=== PATIENT | female | born 1970 | race Asian ===

== ENCOUNTER 2016-08-11 13:38 | Emergency (ER) | payer OTHER ==
[~2016-08-11] VITALS: Ht 149.9 cm; Wt 50.5 kg
[2016-08-11 13:45] VITALS: Ht 149.9 cm; Wt 50.5 kg
[2016-08-11] MEDS ORDERED: FAMOTIDINE 20 MG INJ IV STA (15:13)
[2016-08-11] MEDS ORDERED: ONDANSETRON 4 MG INJ IV STA (15:13)
[2016-08-11] MEDS ORDERED: morphine 4 MG/ML VIAL IV STA (15:13)
--- NOTE | 2016-08-11 15:42 | ERD ---
ER Documentation Chief Complaint Date/Time DATE: 08/11/16 TIME: 15:41 Chief Complaint BIB SELF C/O RUQ PAIN X 3 WEEKS WITH NAUSEA/VOMITING HPI This 45-year-old female who presents the emergency department today complaining of right-sided abdominal pain for the past 3 weeks that is gotten worse over the past 4 days. States she now has nausea and vomiting. States that the pain goes around to the right side of her back. States that she took Advil this morning. States that she went to her primary care doctor and was sent here to the emergency department for further evaluation. Denies any fevers or chills per ROS All systems reviewed and are negative except as per history of present illness. Medications Home Meds Active Scripts Ibuprofen* (Motrin*) 600 Mg Tab, 600 MG PO Q6, #30 TAB Prov:CAITIE YAN PA-C 08/11/16 Ondansetron Hcl* (Zofran*) 4 Mg Tablet, 4 MG PO Q6H for NAUSEA AND/OR VOMITING, #30 TAB Prov:CAITIE YAN PA-C 08/11/16 Hydrocodone/Acetaminophen ([place] 5-325 Tablet) 1 Each Tablet, 1 TAB PO Q6H Y for PAIN, #12 TAB Prov:CAITIE YAN PA-C 08/11/16 Allergies Allergies: Coded Allergies: No Known Allergy (Unverified , 08/11/16) PMhx/Soc Anesthesia Reaction: No Hx Neurological Disorder: No Hx Respiratory Disorders: No Hx Cardiac Disorders: No Hx Psychiatric Problems: No Hx Miscellaneous Medical Probl: No Hx Alcohol Use: No Hx Substance Use: No Hx Tobacco Use: No Smoking Status: Never smoker Physical Exam Vitals Vital Signs Date Time Temp Pulse Resp B/P Pulse Ox O2 Delivery O2 Flow Rate FiO2 08/11/16 13:45 98.3 79 20 128/72 100 Physical Exam Const: No acute distress Head: Atraumatic Eyes: Normal Conjunctiva ENT: Normal External Ears, Nose and Mouth. Neck: Full range of motion..~ No meningismus. Resp: Clear to auscultation bilaterally Cardio: Regular rate and rhythm, no murmurs Abd: Soft, epigastric right upper quadrant tenderness non distended. Normal bowel sounds. No right lower quadrant pain. No tenderness McBurney's. Skin: No petechiae or rashes Back: No midline or flank tenderness. No CVA tenderness peer Ext: No cyanosis, or edema Neur: Awake and alert Psych: Normal Mood and Affect Result Diagram: 08/11/16 1530 08/11/16 1530 Results 24 hrs Laboratory Tests Test 08/11/16 15:30 White Blood Count 11.210^3/ul Red Blood Count 5.2510^6/ul Hemoglobin 12.9g/dl Hematocrit 40.4% Mean Corpuscular Volume 77.0fl Mean Corpuscular Hemoglobin 24.6pg Mean Corpuscular Hemoglobin Concent 31.9g/dl Red Cell Distribution Width 14.3% Platelet Count 01035^3/UL Mean Platelet Volume 10.5fl Neutrophils % 56.0% Lymphocytes % 20.0% Monocytes % 5.0% Eosinophils % 19.0% Neutrophils # 6.310^3/ul Lymphocytes # 2.210^3/ul Monocytes # 0.610^3/ul Eosinophils # 2.110^3/ul Urine Color YELLOW Urine Clarity SLIGHTLY CLOUDY Urine pH 5.0 Urine Specific [place] 1.019 Urine Ketones TRACEmg/dL Urine Nitrite NEGATIVEmg/dL Urine Bilirubin NEGATIVEmg/dL Urine Urobilinogen NEGATIVEmg/dL Urine Leukocyte Esterase NEGATIVELeu/ul Urine Microscopic RBC 2/HPF Urine Microscopic WBC 1/HPF Urine Squamous Epithelial Cells FEW/HPF Urine Bacteria FEW/HPF Urine Hemoglobin 1+mg/dL Urine Glucose NEGATIVEmg/dL Urine Total Protein NEGATIVEmg/dl Sodium Level 139mmol/L Potassium Level 3.6mmol/L Chloride Level 104mmol/L Carbon Dioxide Level 26mmol/L Anion Gap 13 Blood Urea Nitrogen 9mg/dl Creatinine 0.71mg/dl Glucose Level 85mg/dl Calcium Level 9.2mg/dl Total Bilirubin 0.4mg/dl Direct Bilirubin 0.00mg/dl Indirect Bilirubin 0.4mg/dl Aspartate Amino Transf (AST/SGOT) 46IU/L Alanine Aminotransferase (ALT/SGPT) 49IU/L Alkaline Phosphatase 76IU/L Total Protein 8.8g/dl Albumin 5.1g/dl Globulin 3.70g/dl Albumin/Globulin Ratio 1.37 Lipase 150U/L Current Medications Medications (Trade) Dose Ordered Sig/Carmella Route PRN Reason Start Time Stop Time Status Last Admin Dose Admin Morphine Sulfate (morphine) 4 mg ONCE STAT IV 08/11/16 15:13 08/11/16 15:15 DC 08/11/16 15:46 Ondansetron HCl (Zofran Inj) 4 mg ONCE STAT IV 08/11/16 15:13 08/11/16 15:15 DC 08/11/16 15:46 Famotidine (Pepcid Iv) 20 mg ONCE STAT IV 08/11/16 15:13 08/11/16 15:15 DC 08/11/16 15:46 DIAGNOSTIC IMAGING REPORT Patient: ANNMARIE CONTI : 1970 Age: 45 Sex: F MR #: [id number] DOS: 08/11/16 1513 Ordering MD: CAITIE YAN PA-C Location: [facility] Room/Bed: PROCEDURE: Right upper quadrant ultrasound CLINICAL INDICATION: Abdominal pain TECHNIQUE: Multiple real-time images were acquired of the patient's abdomen and right retroperitoneum utilizing a high resolution transducer. COMPARISON: None FINDINGS: The liver is normal in echogenicity and measures 11.9 cm. There is a questionable ill-defined hypoechoic solid appearing 4.4 x 4.9 cm mass in the right hepatic lobe. Recommend further evaluation with three-phase liver CT. No other focal hepatic lesions are seen. The gallbladder there is significantly distended. There is extensive sludge within the gallbladder lumen. No and some areas the sludge appears polypoid which may represent an refractive sludge versus gallbladder wall polyp/mass. There is moderate thickening of the gallbladder wall. No pericholecystic fluid is identified. The intra and extrahepatic bile ducts are normal in caliber. The common bile duct measures 3.9 mm. Midline images demonstrate the pancreas to be normal in echogenicity without obvious inflammatory change. Survey views of the right kidney demonstrate no evidence of hydronephrosis or renal calculi. The right kidney measures 9.8 cm. IMPRESSION: 1. Questionable ill-defined 4.4 x 4.9 cm hypoechoic mass in the right hepatic lobe. Recommend three-phase CT or MRI for further evaluation. No other hepatic lesions seen. 2. Distended gallbladder with extensive sludge. In some areas of sludge appears slightly mass-like and gallbladder neoplasm is not excluded. This can be further evaluated with MRI RPTAT: .Andrew Higuera MD, MD Date Time Electronically viewed and signed by .Andrew Higuera MD, MD on 08/11/2016 16:42 .W/ CC: CAITIE YAN PA-C Procedures/MDM This a 45-year-old female presents the emergency department today complaining of right sided upper abdominal pain that radiates to her back for the past 2 weeks and worse for the past 4 days. On physical exam patient had epigastric and right upper quadrant tenderness radiating around her back. Given this I did obtain laboratory work as well as an ultrasound Laboratory work shows an elevated white blood cell count of 11.2. She is not anemic. Platelets are within normal limits. Electrolytes are within normal limits. Glucose is within normal limits. Lipase is within normal limits. Liver functions within normal limits. UA is negative for infection Urine test is negative Right upper quadrant ultrasound shows a questionable ill-defined for by 4 cm hypoechoic mass in the right hepatic lobe. There is a distended gallbladder with extensive sludge and some areas sludge appears slightly masslike and gallbladder neoplasm is not excluded. There is moderate thickening of the gallbladder wall. There is no pericholecystic fluid identified. I have explained the results to the patient and her . Patient does have good follow-up and states that she can see her primary care doctor fairly quickly. I explained to her that she would likely benefit from referral to general surgery as well. Patient was given morphine, Pepcid and Zofran here in the emergency department. Patient indicated that her pain was controlled. Discussed the patient with Dr. Blackwell and he does not feel that she needs admission at this time given all of her laboratory work is essentially normal and there is no pericholecystic fluid. Patient symptoms at this time is consistent with biliary colic. Patient was given a prescription for [place], Motrin and Zofran for home. At this time the patient is stable for discharge and outpatient management. Patient should follow up with their PCP in the next 1-2 days. They may return to the emergency department sooner for any persistent or worsening of symptoms. Patient understood and agreed with the plan. Departure Diagnosis: Primary Impression: Biliary colic Condition: Fair CAITIE YAN PA-C Aug 11, 2016 15:42
[2016-08-11 15:48] LABS: ADD SCAN DIFF NO
[2016-08-11 15:53] LABS: ABNORMAL IP MESSAGE 1; HEMATOCRIT 40.4 % (37.0-47.0); HEMOGLOBIN 12.9 g/dl (12.0-16.0); MEAN CORPUSCULAR HEMOGLOBIN 24.6 pg (29.0-33.0); MEAN CORPUSCULAR HGB CONC 31.9 g/dl (32.0-37.0); MEAN PLATELET VOLUME 10.5 fl (7.4-10.4); PLATELET COUNT 305 10^3/UL (140-415); RED BLOOD COUNT 5.25 10^6/ul (4.20-5.40); RED CELL DISTRIBUTION WIDTH 14.3 % (11.5-14.5); WHITE BLOOD COUNT 11.2 10^3/ul (4.8-10.8)
[2016-08-11 15:59] LABS: ADD UMIC YES; UR ASCORBIC ACID NEGATIVE (NEGATIVE); UR BACTERIA FEW /HPF (NONE SEEN); UR BILIRUBIN (Dip) NEGATIVE (NEGATIVE); UR BLOOD (Dip) 1+ mg/dL (NEGATIVE); UR CLARITY SLIGHTLY CLOUDY (CLEAR); UR COLOR YELLOW (YELLOW); UR GLUCOSE (Dip) NEGATIVE (NEGATIVE); UR KETONES (Dip) TRACE mg/dL (NEGATIVE); UR LEUKOCYTE ESTERASE (Dip) NEGATIVE Leu/ul (NEGATIVE); UR NITRITE (Dip) NEGATIVE (NEGATIVE); UR RBC 2 /HPF (0-5); UR SPECIFIC GRAVITY (Dip) 1.019 (1.003-1.030); UR SQUAMOUS EPITHELIAL CELL FEW /HPF (FEW); UR TOTAL PROTEIN (Dip) NEGATIVE (NEGATIVE); UR UROBILINOGEN (Dip) NEGATIVE (NEGATIVE)
[2016-08-11 16:27] LABS: ALBUMIN 5.1 g/dl (3.3-4.9); ALBUMIN/GLOBULIN RATIO 1.37; BILIRUBIN,INDIRECT 0.4 mg/dl (0-1.1); BILIRUBIN,TOTAL 0.4 mg/dl (0.2-1.3); CALCIUM 9.2 mg/dl (8.4-10.2); CREATININE 0.71 mg/dl (0.44-1.00); POTASSIUM 3.6 mmol/L (3.5-5.1); TOTAL PROTEIN 8.8 g/dl (6.1-8.1)
[2016-08-11 16:29] LABS: EOSINOPHILS # 2.1 10^3/ul (0.0-0.5); LYMPHOCYTES # 2.2 10^3/ul (0.8-2.9); MONOCYTE # 0.6 10^3/ul (0.3-0.9); NEUTROPHIL # 6.3 10^3/ul (1.6-7.5)
--- NOTE | 2016-08-11 16:43 | RADRPT ---
PROCEDURE: Right upper quadrant ultrasound CLINICAL INDICATION: Abdominal pain TECHNIQUE: Multiple real-time images were acquired of the patient's abdomen and right retroperiton eum utilizing a high resolution transducer. COMPARISON: None FINDINGS: The liver is normal in echogenicity and measures 11.9 cm. There is a questionable ill-defined hypoe choic solid appearing 4.4 x 4.9 cm mass in the right hepatic lobe. Recommend further evaluation wit h three-phase liver CT. No other focal hepatic lesions are seen. The gallbladder there is significa ntly distended. There is extensive sludge within the gallbladder lumen. No and some areas the sludg e appears polypoid which may represent an refractive sludge versus gallbladder wall polyp/mass. Ther e is moderate thickening of the gallbladder wall. No pericholecystic fluid is identified. The intr a and extrahepatic bile ducts are normal in caliber. The common bile duct measures 3.9 mm. Midline images demonstrate the pancreas to be normal in echogenicity without obvious inflammatory ch azra. Survey views of the right kidney demonstrate no evidence of hydronephrosis or renal calculi. The ri ght kidney measures 9.8 cm. IMPRESSION: 1. Questionable ill-defined 4.4 x 4.9 cm hypoechoic mass in the right hepatic lobe. Recommend thre e-phase CT or MRI for further evaluation. No other hepatic lesions seen. 2. Distended gallbladder with extensive sludge. In some areas of sludge appears slightly mass-like and gallbladder neoplasm is not excluded. This can be further evaluated with MRI RPTAT: HH .Andrew Higuera MD, MD Date Time Electronically viewed and signed by .Andrew Higuera MD, MD on 08/11/2016 16:42 .W/
[2016-08-11] MEDS ORDERED: HYDR-906 PO (17:27)
[2016-08-11] MEDS ORDERED: IBUP-1542 PO (17:27)
[2016-08-11] MEDS ORDERED: ONDA4TAB8 PO (17:27)
[2016-08-12] MEDS ORDERED: ALBU18HF INHALATION (17:27)
[2016-08-12] MEDS ORDERED: RANI150T9 PO (17:31)
== END 2016-08-11 17:47 | disposition home or self-care (01) ==
LOC: FTE 13:38
DX: K80.50 Calculus of bile duct without cholangitis or cholecystitis without obstruction (principal); R11.2 Nausea with vomiting, unspecified
CPT/HCPCS: 36415; 76705; 80053; 81001; 83690; 85025; 96374; 96375; J2270; J2405; Z7502; Z7610

== ENCOUNTER 2016-08-12 12:05 | Inpatient (IN) | payer OTHER ==
[~2016-08-12] VITALS: Ht 149.9 cm; Wt 51.4 kg
[~2016-08-12 12:05] MED LIST: HYDR-906 PO; IBUP-1542 PO; ONDA4TAB8 PO
[2016-08-12] MEDS ORDERED: ONDANSETRON 4 MG INJ IV STA (13:23)
[2016-08-12] MEDS ORDERED: SOD CHLORIDE 0.9% 1,000 ML IV STA (13:23)
[2016-08-12] MEDS ORDERED: morphine 4 MG/ML VIAL IV STA (13:23)
[2016-08-12 14:05] LABS: ADD SCAN DIFF NO
[2016-08-12 14:09] LABS: BASOPHIL # 0.1 10^3/ul (0.0-0.1); BASOPHILS % 0.5 % (0.0-2.0); EOSINOPHILS % 8.1 % (0.0-7.0); HEMATOCRIT 40.2 % (37.0-47.0); HEMOGLOBIN 12.9 g/dl (12.0-16.0); LYMPHOCYTES # 1.9 10^3/ul (0.8-2.9); LYMPHOCYTES % 15.9 % (15.0-51.0); MEAN CORPUSCULAR HEMOGLOBIN 24.7 pg (29.0-33.0); MEAN CORPUSCULAR HGB CONC 32.1 g/dl (32.0-37.0); MEAN PLATELET VOLUME 10.5 fl (7.4-10.4); MONOCYTE # 0.9 10^3/ul (0.3-0.9); MONOCYTES % 7.1 % (0.0-11.0); NEUTROPHIL # 8.2 10^3/ul (1.6-7.5); PLATELET COUNT 269 10^3/UL (140-415); RED BLOOD COUNT 5.22 10^6/ul (4.20-5.40); RED CELL DISTRIBUTION WIDTH 14.2 % (11.5-14.5); WHITE BLOOD COUNT 12.1 10^3/ul (4.8-10.8)
[2016-08-12 14:14] LABS: UR BUDDING YEAST FEW /HPF (NONE SEEN); UR MUCUS FEW /HPF (NONE SEEN); UR RBC > 182 /HPF (0-5); UR SQUAMOUS EPITHELIAL CELL FEW /HPF (FEW)
[2016-08-12 14:33] LABS: ALBUMIN 5.1 g/dl (3.3-4.9); ALBUMIN/GLOBULIN RATIO 1.45; BILIRUBIN,INDIRECT 0.9 mg/dl (0-1.1); BILIRUBIN,TOTAL 0.9 mg/dl (0.2-1.3); CALCIUM 9.5 mg/dl (8.4-10.2); CREATININE 0.76 mg/dl (0.44-1.00); POTASSIUM 4.7 mmol/L (3.5-5.1); TOTAL PROTEIN 8.6 g/dl (6.1-8.1)
[2016-08-12 14:43] LABS: ADD UMIC YES; UR ASCORBIC ACID NEGATIVE (NEGATIVE); UR BACTERIA FEW /HPF (NONE SEEN); UR BILIRUBIN (Dip) NEGATIVE (NEGATIVE); UR BLOOD (Dip) 3+ mg/dL (NEGATIVE); UR CLARITY SLIGHTLY CLOUDY (CLEAR); UR COLOR YELLOW (YELLOW); UR GLUCOSE (Dip) NEGATIVE (NEGATIVE); UR KETONES (Dip) 2+ mg/dL (NEGATIVE); UR LEUKOCYTE ESTERASE (Dip) NEGATIVE Leu/ul (NEGATIVE); UR NITRITE (Dip) NEGATIVE (NEGATIVE); UR SPECIFIC GRAVITY (Dip) 1.021 (1.003-1.030); UR TOTAL PROTEIN (Dip) 1+ mg/dl (NEGATIVE); UR UROBILINOGEN (Dip) NEGATIVE (NEGATIVE)
[2016-08-12] MEDS ORDERED: SOD CHLORIDE 0.9% 100 ML ONE (14:45)
[2016-08-12] MEDS ORDERED: IOHEXOL 300MG/ML 150 ML BTL ONE (14:46)
--- NOTE | 2016-08-12 15:27 | RADRPT ---
PROCEDURE: CT abdomen and pelvis with contrast. CLINICAL INDICATION: Abdominal pain TECHNIQUE: CT scan of the abdomen and pelvis with contrast was performed on a multi-slice CT scann er. The patient was scanned following the uncomplicated intravenous administration 100 cc of Omnipa que 300. Coronal and sagittal reformatted images were obtained from the axial source images. One or more of the following does reduction techniques were used: Automated exposure control; adjustment of the mA and/or kV according to patient size; use of the aorta of reconstruction technique. Images were reviewed on a high-resolution PACS workstation. The total exam CTDI equals 7.1 mGy and the tota l exam DLP equals 366.3 mGy-cm. COMPARISON: There are quadrant ultrasound 08/11/2016 FINDINGS: The lung bases are clear. The heart size is normal, without pericardial thickening or effusion. There are at least 3 liver masses, the smallest measures 1.5 cm in the anterior right lobe of the li [place]. The largest mass is in the inferior anterior right lobe liver and measures up to 7.3 x 5.4 x 5 .9 cm. There is direct extension into the fundus of the gallbladder and an exophytic portion extend ing inferiorly to the liver. There is associated trace free fluid or infiltrative change just infer ior to the liver. There is additional soft tissue density in the region of the neck of the gallbladd er which may represent additional mass. The common bile duct is prominent with abrupt cut off of th e distal duct concerning for partial or early obstruction. The spleen and pancreas are within marli l limits. The adrenal glands are symmetric and normal. The kidneys show normal and symmetric enhancement. No renal calculus or obstructive uropathy is seen. The aorta is of normal caliber. Atherosclerotic calcifications are present There is no retroperiton eal lymph node enlargment. There is no evidence of large or small bowel obstruction. No free fluid or fluid collections are mary lou ntified. No inflammatory changes are seen. The uterus is present. There is no evidence of pelvic sidewall lymph node enlargement. The bladder is within normal limits. There is no pelvic free fluid. The inguinal regions are unremarkable. The osseous structures are intact. IMPRESSION: 1. At least 3 liver masses, largest measuring up to 7.3 cm with direct extension into the fundus of the gallbladder. Findings are most consistent with metastatic disease. Recommend biopsy and compl ete metastatic workup. 2. Prominent common bile duct with abrupt cut off distally may indicate a distal partial obstructio n. Consider ERCP for further evaluation if clinically indicated. 3. Atherosclerotic vascular disease. RPTAT: KK .Morgan Guerrero MD, MD Date Time Electronically viewed and signed by .Morgan Guerrero MD, MD on 08/12/2016 15:27 .B/
--- NOTE | 2016-08-12 15:47 | ERA ---
ER Documentation Chief Complaint Date/Time DATE: 08/12/16 TIME: 15:41 Chief Complaint seen here before has a mass in her triston HPI This is a 45-year-old female presents to the ER with continued and worsening right upper abdominal pain. Pain started 3 weeks ago and has been getting significantly worse over the last few days. Patient has had nausea and multiple episodes nonbilious nonbloody vomiting. She denies any diarrhea. She denies any recent travel or sick contacts at home. She denies fevers or chills. She went to her primary care doctor and was referred to the ER. Patient has slight for the last 20 years, there is no liver or gallbladder cancer. Patient denies any alcohol or tobacco use. ROS 12 point review of systems was done, all negative except per HPI. Medications Home Meds Reported Medications Ranitidine Hcl* (Zantac*) 150 Mg Tablet, 150 MG PO BID, #60 TAB 08/12/16 Albuterol Sulfate* (Ventolin HFA*) 18 Gm Hfa.aer.ad, 2 PUFF INHALATION Q4H, #1 INHALER 08/12/16 Discontinued Scripts Ibuprofen* (Motrin*) 600 Mg Tab, 600 MG PO Q6, #30 TAB Prov:CAITIE YAN PA-C 08/11/16 Ondansetron Hcl* (Zofran*) 4 Mg Tablet, 4 MG PO Q6H for NAUSEA AND/OR VOMITING, #30 TAB Prov:CAITIE YAN PA-C 08/11/16 Hydrocodone/Acetaminophen ([place] 5-325 Tablet) 1 Each Tablet, 1 TAB PO Q6H Y for PAIN, #12 TAB Prov:CAITIE YAN PA-C 08/11/16 Allergies Allergies: Coded Allergies: No Known Allergy (Unverified , 08/11/16) PMhx/Soc Anesthesia Reaction: No Hx Neurological Disorder: No Hx Respiratory Disorders: No Hx Cardiac Disorders: No Hx Psychiatric Problems: No Hx Miscellaneous Medical Probl: No Hx Alcohol Use: No Hx Substance Use: No Hx Tobacco Use: No Smoking Status: Never smoker Physical Exam Vitals Vital Signs Date Time Temp Pulse Resp B/P Pulse Ox O2 Delivery O2 Flow Rate FiO2 08/12/16 16:18 98.2 79 18 132/78 100 Room Air 08/12/16 12:08 98.5 72 18 130/81 100 Physical Exam GENERAL: The patient is in significant distress secondary to pain. HEENT: Atraumatic. CHEST: Clear to auscultation bilaterally. There are no rales, wheezes or rhonchi. HEART: Regular rate and rhythm. No murmurs, clicks, rubs or gallops. ABDOMEN: Soft, tender to palpation in the right upper quadrant, right lower quadrant, and mid abdomen. Good bowel sounds. No rebound or guarding. No gross peritonitis. No gross organomegaly or masses. No Coleman sign or McBurney point tenderness. BACK: No midline or flank tenderness. NEURO: Alert and oriented. Result Diagram: 08/12/16 1350 08/12/16 1350 Results 24 hrs Laboratory Tests Test 08/12/16 13:50 White Blood Count 12.110^3/ul Red Blood Count 5.2210^6/ul Hemoglobin 12.9g/dl Hematocrit 40.2% Mean Corpuscular Volume 77.0fl Mean Corpuscular Hemoglobin 24.7pg Mean Corpuscular Hemoglobin Concent 32.1g/dl Red Cell Distribution Width 14.2% Platelet Count 32708^3/UL Mean Platelet Volume 10.5fl Neutrophils % 68.0% Lymphocytes % 15.9% Monocytes % 7.1% Eosinophils % 8.1% Basophils % 0.5% Nucleated Red Blood Cells % 0.0/100WBC Neutrophils # 8.210^3/ul Lymphocytes # 1.910^3/ul Monocytes # 0.910^3/ul Eosinophils # 1.010^3/ul Basophils # 0.110^3/ul Nucleated Red Blood Cells # 0.010^3/ul Urine Color YELLOW Urine Clarity SLIGHTLY CLOUDY Urine pH 5.0 Urine Specific [place] 1.021 Urine Ketones 2+mg/dL Urine Nitrite NEGATIVEmg/dL Urine Bilirubin NEGATIVEmg/dL Urine Urobilinogen NEGATIVEmg/dL Urine Leukocyte Esterase NEGATIVELeu/ul Urine Microscopic RBC > 182/HPF Urine Microscopic WBC 18/HPF Urine Squamous Epithelial Cells FEW/HPF Urine Bacteria FEW/HPF Urine Mucus FEW/HPF Urine Yeast (Budding) FEW/HPF Urine Hemoglobin 3+mg/dL Urine Glucose NEGATIVEmg/dL Urine Total Protein 1+mg/dl Sodium Level 139mmol/L Potassium Level 4.7mmol/L Chloride Level 102mmol/L Carbon Dioxide Level 26mmol/L Anion Gap 16 Blood Urea Nitrogen 11mg/dl Creatinine 0.76mg/dl Glucose Level 77mg/dl Calcium Level 9.5mg/dl Total Bilirubin 0.9mg/dl Direct Bilirubin 0.00mg/dl Indirect Bilirubin 0.9mg/dl Aspartate Amino Transf (AST/SGOT) 48IU/L Alanine Aminotransferase (ALT/SGPT) 41IU/L Alkaline Phosphatase 83IU/L Total Protein 8.6g/dl Albumin 5.1g/dl Globulin 3.50g/dl Albumin/Globulin Ratio 1.45 Lipase 137U/L Current Medications Medications (Trade) Dose Ordered Sig/Carmella Route PRN Reason Start Time Stop Time Status Last Admin Dose Admin Sodium Chloride (NS) 1,000 ml @ 1,000 mls/hr Q1H STAT IV 08/12/16 13:23 08/12/16 14:22 DC 08/12/16 13:51 Morphine Sulfate (morphine) 5 mg ONCE STAT IV 08/12/16 13:23 08/12/16 13:25 DC 08/12/16 13:51 Ondansetron HCl (Zofran Inj) 4 mg ONCE STAT IV 08/12/16 13:23 08/12/16 13:25 DC 08/12/16 13:50 IV Flush 10 ml 10 ml STK-MED ONCE .ROUTE 08/12/16 14:45 08/12/16 14:46 DC Sodium Chloride (NS) 100 ml @ ud STK-MED ONCE .ROUTE 08/12/16 14:45 08/12/16 14:46 DC Iohexol 150 ml 150 ml STK-MED ONCE .ROUTE 08/12/16 14:46 08/12/16 14:47 DC Piperacillin Sod/ Tazobactam Sod (Zosyn 3.375gm/ 100 ml (Pmx)) 100 ml @ 200 mls/hr ONCE ONCE IVPB 08/12/16 17:30 08/12/16 17:59 DC 08/12/16 17:28 Procedures/MDM This is a 45-year-old female presents to the ER with worsening right upper quadrant pain. Patient was found to have 3 liver masses that could possibly be metastatic disease. Patient was also found to have a distal partial obstruction. Patient's with benefit from admission for further metastatic workup and biopsy. I consulted with GI doctor Tara who has agreed to consult on patient once she is admitted Departure Diagnosis: Primary Impression: Gallbladder cancer Additional Impressions: Metastatic disease Choledocholithiasis Condition: GHANSHYAM Solis Aug 12, 2016 15:47
[2016-08-12 16:18] VITALS: TEMP 98.2
[2016-08-12] MEDS ORDERED: ALBU18HF INHALATION (17:27)
[2016-08-12] MEDS ORDERED: PIPER-TAZO 3.375 GM IV (PMX) 100 ML IVPB ONE (17:30)
[2016-08-12] MEDS ORDERED: RANI150T9 PO (17:31)
[2016-08-12] MEDS ORDERED: DOCUSATE SODIUM 100 MG CAP PO PRN (18:00)
[2016-08-12] MEDS ORDERED: NA PHOSPHATE/BIPHOS 133 ML ENEMA PR PRN (18:00)
[2016-08-12] MEDS ORDERED: morphine 2 MG INJ IV PRN (18:00)
[2016-08-12] MEDS ORDERED: PROVENTIL HFA 6.7GM INHALER INH SCH (18:00)
[2016-08-12] MEDS ORDERED: hydrALAzine 20 MG INJ IV PRN (18:00)
[2016-08-12] MEDS ORDERED: MAGNESIUM HYDROXIDE 30ML CUP PO PRN (18:00)
[2016-08-12] MEDS ORDERED: NITROGLYCERIN (SL) 0.4 MG TAB SL PRN (18:00)
[2016-08-12] MEDS ORDERED: ALBUTEROL/IPRATROPIUM (NEB) 3 ML AMP HHN PRN (18:00)
[2016-08-12] MEDS ORDERED: NACL 0.9% 3 ML SYG IV SCH (18:00)
[2016-08-12] MEDS ORDERED: LORAZEPAM 2 MG INJ IV PRN (18:00)
[2016-08-12] MEDS ORDERED: HYDROCODONE/APAP (5/325) TAB PO PRN (18:00)
[2016-08-12 18:49] LABS: INR 0.99; PROTIME 13.1 Sec (12.2-14.2)
[2016-08-12 18:50] LABS: PARTIAL THROMBOPLASTIN TIME 28.5 Sec (25.0-35.0)
[2016-08-12] MEDS: ACETAMINOPHEN 325 MG TAB PO PRN (18:50)
[2016-08-12] MEDS: ONDANSETRON 4 MG INJ IV PRN (18:50)
[2016-08-12] MEDS ORDERED: PEG/ELECTROLYTES 4L BTL PO ONE (19:00)
[2016-08-12] MEDS: SOD CHLORIDE 0.45% 1,000 ML IV SCH (19:30)
[2016-08-12 19:58] LABS: CANCER ANTIGEN 125 36.1 U/ml (0.0-35.0)
--- NOTE | 2016-08-12 20:04 | HP ---
DATE OF ADMISSION: 08/12/2016 CHIEF COMPLAINT: Abdominal pain. HISTORY OF PRESENT ILLNESS: A 45-year-old female with past medical history of asthma who came into the ER today because of worsening right upper quadrant pain. The pain began about 3 weeks ago. She has been having nausea and vomiting symptoms, nonbilious, nonbloody. She tried some Zantac at home , which did not relieve her symptoms. She has also been having some mild abdominal pain, but no jaime rrhea, no constipation, no upper or lower GI bleeding. No fevers or chills. No headache or loss of consciousness. When she came in today, she had imaging studies performed. Apparently, she came in to the ER 24 hours ago and had a gallbladder ultrasound performed and there was a diagnosis given of biliary colic. The patient was sent home with pain control medications and antiemetics, but she di d come back today because of worsening symptoms. Today, she had a CT abdomen and pelvis that shows at least 3 liver masses, largest measuring up to 7.3 cm with a direct extension into the fundus of t he gallbladder. Findings are most consistent with metastatic disease, recommend biopsying, complete metastatic workup. There is also a prominent common bile duct with abrupt cut off distally, may in dicate distal partial obstruction. Consider ERCP for further evaluation if clinically indicated. J ust now the GI doctor has come and evaluated the patient as well here in the ER. PAST MEDICAL HISTORY: As stated above. ALLERGIES: NO KNOWN DRUG ALLERGIES. MEDICATIONS AT HOME: Include: 1. Ventolin HFA 2 puffs inhaled q.4h. 2. Zantac 150 mg b.i.d. PAST SURGICAL HISTORY: She has had a tubal ligation in the past. FAMILY HISTORY: Mother had hypertension. Father had skin disease. SOCIAL HISTORY: Negative for smoking or drinking or IV drug abuse. PHYSICAL EXAMINATION: VITAL SIGNS: T-max 98.5, pulse 72 to 79, respirations 18, blood pressure 132/78, saturating at 100% on room air. GENERAL: The patient is lying in bed in mild to moderate distress secondary to pain, but alert. HEENT: Pupils equal, round, react to light. Extraocular muscles intact. NECK: Supple. No thyromegaly. LUNGS: Clear to auscultation bilaterally. No wheezes. CARDIOVASCULAR: S1 and S2 are heard. No murmurs, rubs, or gallops. ABDOMEN: Soft, but tenderness to palpation, right upper quadrant area, and also in the right lower quadrant area, in the mid abdomen area. There is normal bowel sounds. No rebound or guarding. Non distended. MUSCULOSKELETAL: No lower extremity edema bilaterally. NEUROLOGIC: No focal deficits. LABORATORIES: WBC 12.1, hemoglobin 12.9, hematocrit 40.2, platelets of 269. The comprehensive meta bolic panel is essentially normal except AST is a little high at 48. Lipase is normal. UA shows sl ightly cloudy, 2+ ketones, 18 white blood cells, which are elevated, and a few bacteria, few mucus, few budding yeast, and 3+ hemoglobin. The coags are essentially normal. ASSESSMENT AND PLAN: A 45-year-old female coming in with worsening right upper quadrant pain for e last 3 weeks with signs of new liver masses extending into the gallbladder wall, concerning for me tastasis. 1. Abdominal pain. Again secondary likely to the liver masses and gallbladder extension of the mas s. We will admit the patient to med/surg floor. We will check a TSH, A1c, lipid panel. Get a hepa tobiliary consult, hematology consult, and GI consult. Per discussion with GI team, the patient lik demond will need an ERCP. Will also put the patient on Zosyn antibiotics for now, given the elevated w soo blood cell count. Tylenol p.r.n. pain and fevers. Antiemetic medications as well IV fluids. Will also get an MRCP as well. Check tumor markers as well including alpha fetoprotein, CA-125, CA 19-9, and CEA levels. There was a concern of possible malignancy here. 2. For asthma, she will be on DuoNebs p.r.n. 3. Gastrointestinal prophylaxis, she will be on H2 lena. 4. Deep venous thrombosis prophylaxis, heparin subq. 5. Consider PT consult as well. Dictated By: JONNY DOWELL Conf#: [id number] DID#: [id number]
[2016-08-12] MEDS: RANITIDINE 150 MG TAB PO SCH (20:23)
--- NOTE | 2016-08-12 20:24 | CONS ---
DATE OF ADMISSION: 08/12/2016 DATE OF CONSULTATION: TYPE OF CONSULTATION: Gastroenterology. Dear Dr. Hood, Thank you for asking me to see Ms. Diallo in GI consultation. HISTORY OF PRESENT ILLNESS: As you know, the patient is a 45-year-old Vincentian female, has been exp eriencing abdominal pain for the past 3 weeks associated with periodic vomiting. She has had no his tory of vomiting blood or passing blood from the rectum. She has no significant weight loss. No al coholism. Review of systems positive for asthma. She was seen in the emergency room, and the CAT s can of the abdomen shows evidence of multiple masses in the liver, possible gallbladder mass and als o biliary obstruction. PAST MEDICAL HISTORY: No ____ surgeries. REVIEW OF SYSTEMS: Asthma. PHYSICAL EXAMINATION: GENERAL: The patient is a 45-year-old Vincentian female who at this time is alert, thin built. VITAL SIGNS: She is afebrile. The blood pressure is 132/78, pulse is 79. CARDIOVASCULAR: Normal heart sounds. RESPIRATORY: Normal breath sounds. ABDOMEN: Soft abdomen with right upper quadrant tenderness. LABORATORY WORKUP: Potassium 4.7, the bilirubin 0.9, AST 48, ALT 41, alkaline phosphatase 83, total protein 8.6, globulin 3.5, lipase 137. The WBC is 12,100, hemoglobin 12.9. IMAGING: The CAT scan of the abdomen, as mentioned earlier on, multiple masses in the liver, possib le gallbladder mass, biliary obstruction noted. CLINICAL IMPRESSION: The patient has evidence of multiple masses in the liver with biliary obstruct ion. Quite likely that she has metastatic disease causing the biliary obstruction. I doubt choledo cholithiasis. PLAN: At this time, recommend ERCP. This was explained to the patient. She understood and she agr eed. Will do this ERCP tomorrow. Once again, doctor, thank you for this consultation. Dictated By: JULIANO ALMANZAR/MAYO Conf#: [id number] DID#: [id number] CC: JONNY HOOD;*EndCC*
[2016-08-12 22:03] VITALS: Ht 149.9 cm; Wt 51.4 kg
[2016-08-12 22:16] VITALS: BP 120/70; PULSE 76; RESP 18
[2016-08-12] MEDS: HEPARIN 5,000 UNIT/0.5 ML VIAL SC SCH (22:39)
--- NOTE | 2016-08-12 23:19 | RADRPT ---
PROCEDURE: MRI of the abdomen without contrast/MRCP. CLINICAL INDICATION: Liver and gallbladder mass TECHNIQUE: MRI of the abdomen without contrast/MRCP was performed on the a high-resolution, high T esla field strength scanner. Patient was examined without contrast. 3-D coronal rotating MIP image s of the biliary tree are available for review. COMPARISON: CT abdomen and pelvis with contrast of 08/12/2016 and right upper quadrant abdominal ult rasound of 08/11/2016 FINDINGS: Evaluation of the liver is limited without contrast. Multiple masses are seen in the left lobe of t he liver and anterior segment of the right lobe of the liver the largest approximately 7.2 x 5.3 cm centered in the medial segment of the left lobe which appears to extend to the gallbladder fundus. There is cholelithiasis. There is mild central intrahepatic biliary dilatation and dilatation of th e extrahepatic bile duct to approximately 8 mm diameter. No definite choledocholithiasis is seen. N o stricture is seen in the extrahepatic bile duct. The pancreatic duct, as visualized, is unremarkab le. IMPRESSION: Evaluation of the liver is limited without contrast. Multiple masses are seen in the left lobe of t he liver and anterior segment of the right lobe of the liver the largest approximately 7.2 x 5.3 cm centered in the medial segment of the left lobe which appears to extend to the gallbladder fundus. Cholelithiasis. Mild central intrahepatic biliary dilatation and dilatation of the extrahepatic robert e duct to approximately 8 mm diameter. Please see above. RPTAT: HJES .Lalo Cano MD, MD Date Time Electronically viewed and signed by .Lalo Cano MD, on 08/12/2016 23:19 .S/
[2016-08-12] MEDS: PIPER-TAZO 3.375 GM IV (PMX) 100 ML IVPB SCH (23:55)
[2016-08-13] VITALS (18 sets, daily range): BP systolic 97–139; BP diastolic 55–77; PULSE 52–87; RESP 16–23
[2016-08-13] MEDS: ONDANSETRON 4 MG INJ IV PRN (02:02)
[2016-08-13] MEDS: ACETAMINOPHEN 325 MG TAB PO PRN ×3 (02:02→16:00)
[2016-08-13] MEDS: PIPER-TAZO 3.375 GM IV (PMX) 100 ML IVPB SCH ×4 (05:58→23:02)
[2016-08-13 07:16] LABS: ADD SCAN DIFF NO
[2016-08-13] MEDS: SOD CHLORIDE 0.45% 1,000 ML IV SCH ×2 (07:20→11:02)
[2016-08-13 07:21] LABS: BASOPHIL # 0.1 10^3/ul (0.0-0.1); BASOPHILS % 0.4 % (0.0-2.0); EOSINOPHILS # 0.1 10^3/ul (0.0-0.5); EOSINOPHILS % 1.1 % (0.0-7.0); HEMATOCRIT 35.2 % (37.0-47.0); HEMOGLOBIN 11.3 g/dl (12.0-16.0); LYMPHOCYTES # 1.4 10^3/ul (0.8-2.9); LYMPHOCYTES % 11.3 % (15.0-51.0); MEAN CORPUSCULAR HEMOGLOBIN 25.2 pg (29.0-33.0); MEAN CORPUSCULAR HGB CONC 32.1 g/dl (32.0-37.0); MEAN CORPUSCULAR VOLUME 78.6 fl (82.0-101.0); MEAN PLATELET VOLUME 10.8 fl (7.4-10.4); MONOCYTE # 0.9 10^3/ul (0.3-0.9); MONOCYTES % 7.3 % (0.0-11.0); NEUTROPHIL # 9.7 10^3/ul (1.6-7.5); NEUTROPHILS % 79.5 % (39.0-77.0); PLATELET COUNT 245 10^3/UL (140-415); RED BLOOD COUNT 4.48 10^6/ul (4.20-5.40); RED CELL DISTRIBUTION WIDTH 14.1 % (11.5-14.5); WHITE BLOOD COUNT 12.2 10^3/ul (4.8-10.8)
[2016-08-13] MEDS: RANITIDINE 150 MG TAB PO SCH ×2 (09:11→21:00)
[2016-08-13] MEDS: HEPARIN 5,000 UNIT/0.5 ML VIAL SC SCH (09:14)
[2016-08-13 09:31] LABS: CHOL/HDL RATIO 2.4 RATIO
[2016-08-13 09:33] LABS: CALCIUM 7.9 mg/dl (8.4-10.2); CREATININE 0.62 mg/dl (0.44-1.00); MAGNESIUM 1.9 mg/dl (1.7-2.5); PHOSPHORUS 3.8 mg/dl (2.5-4.9)
--- NOTE | 2016-08-13 11:02 | CONS ---
Date/Time of Note Date/Time of Note DATE: 08/13/16 TIME: 10:45 Assessment/Plan Assessment/Plan Chief Complaint/Hosp Course 45 yo with RUQ pain now found with multiple liver masses and biliary obstruction. # Liver masses - given elevated CA 19-9 of 3420 there is a high likelihood patient has an underlying hepatobiliary malignancy -f/u pathology results from ERCP -agree with surgical hepatobiliary consult # Microcytic Anemia -given concern for iron deficiency, will check iron studies -need to check VitB12/ Folate/ TSH -r/o hemolysis. will check Retic, LDH, haptoglobin #leukocytosis - likely secondary to underlying inflammatory process. pt is s/p 1 dose of Zosn but does not appear to be clinically infected -will continue to monitor Problems: (1) Leukocytosis Status: Acute (2) Anemia, iron deficiency Status: Acute (3) Choledocholithiasis Status: Acute (4) Gallbladder cancer Status: Chronic Consultation Date/Type/Reason Admit Date/Time Aug 12, 2016 at 17:07 Initial Consult Date August 13, 2016 Type of Consultation: oncology Reason for Consultation liver masses Referring Provider: JONNY HOOD 24 HR Interval Summary Free Text/Dictation 45-year-old female with past medical history of asthma who presented [facility] with 3 weeks of indigestion and right upper quadrant pain. Pt endorses nausea but denies any hematemesis or bloody bowel movements. Pt denies any weight loss or jaundice. A CT abdomen and pelvisw as done that demonstrated at least 3 liver masses, largest measuring up to 7.3 cm with a direct extension into the fundus of the gallbladder. There is possibility of biliary obstruction. Pt has since been evaluated by GI and is scheduled for ERCP today. Constitutional: poor po Exam/Review of Systems Vital Signs Vitals Vital Signs Date Time Temp Pulse Resp B/P Pulse Ox O2 Delivery O2 Flow Rate FiO2 08/13/16 07:36 98.2 71 18 101/57 99 08/12/16 22:16 Room Air Intake and Output 08/12/16 08/12/16 08/13/16 15:00 23:00 07:00 Intake Total 830 ml Balance 830 ml Exam Constitutional: alert, oriented Psych: no complaints Head: atraumatic, normocephalic Eyes: nl conjunctiva ENMT: nl external ears & nose Neck: non-tender, supple Respiratory: clear to auscultation Cardiovascular: regular rate and rhythm Gastrointestinal: other (RUQ tenderness) Musculoskeletal: nl extremities to inspection Extremities: normal pulses Results Result Diagram: 08/13/16 0524 08/13/16 0524 Results 24 hrs Laboratory Tests Test 08/12/16 13:50 08/12/16 17:50 08/13/16 05:24 White Blood Count 12.1 H 12.2 H Red Blood Count 5.22 4.48 Hemoglobin 12.9 11.3 L Hematocrit 40.2 35.2 L Mean Corpuscular Volume 77.0 L 78.6 L Mean Corpuscular Hemoglobin 24.7 L 25.2 L Mean Corpuscular Hemoglobin Concent 32.1 32.1 Red Cell Distribution Width 14.2 14.1 Platelet Count 269 245 Mean Platelet Volume 10.5 H 10.8 H Neutrophils % 68.0 79.5 H Lymphocytes % 15.9 11.3 L Monocytes % 7.1 7.3 Eosinophils % 8.1 H 1.1 Basophils % 0.5 0.4 Nucleated Red Blood Cells % 0.0 0.0 Neutrophils # 8.2 H 9.7 H Lymphocytes # 1.9 1.4 Monocytes # 0.9 0.9 Eosinophils # 1.0 H 0.1 Basophils # 0.1 0.1 Nucleated Red Blood Cells # 0.0 0.0 Urine Color YELLOW Urine Clarity SLIGHTLY CLOUDY A Urine pH 5.0 Urine Specific [place] 1.021 Urine Ketones 2+ H Urine Nitrite NEGATIVE Urine Bilirubin NEGATIVE Urine Urobilinogen NEGATIVE Urine Leukocyte Esterase NEGATIVE Urine Microscopic RBC > 182 H Urine Microscopic WBC 18 H Urine Squamous Epithelial Cells FEW Urine Bacteria FEW A Urine Mucus FEW A Urine Yeast (Budding) FEW A Urine Hemoglobin 3+ H Urine Glucose NEGATIVE Urine Total Protein 1+ H Sodium Level 139 136 Potassium Level 4.7 4.0 Chloride Level 102 105 Carbon Dioxide Level 26 18 L Anion Gap 16 17 H Blood Urea Nitrogen 11 10 Creatinine 0.76 0.62 Glucose Level 77 48 #*L Calcium Level 9.5 7.9 L Total Bilirubin 0.9 Direct Bilirubin 0.00 Indirect Bilirubin 0.9 Aspartate Amino Transf (AST/SGOT) 48 H Alanine Aminotransferase (ALT/SGPT) 41 Alkaline Phosphatase 83 Total Protein 8.6 H Albumin 5.1 H Globulin 3.50 H Albumin/Globulin Ratio 1.45 Lipase 137 Prothrombin Time 13.1 Prothrombin Time Ratio 1.0 INR International Normalized Ratio 0.99 Activated Partial Thromboplast Time 28.5 Alpha Fetoprotein 1.34 Carcinoembryonic Antigen 106.0 H CA 19-9 Antigen 3420.0 H CA 125 Antigen 36.1 H Free Thyroxine 1.40 Hemoglobin A1c 5.4 Phosphorus Level 3.8 Magnesium Level 1.9 Triglycerides Level 54 Cholesterol Level 167 LDL Cholesterol, Calculated 88 HDL Cholesterol 68 Cholesterol/HDL Ratio 2.4 Thyroid Stimulating Hormone (TSH) Pending Medications Medications Current Medications Ondansetron HCl (Zofran Inj) 4 mg Q6H PRN IV NAUSEA AND/OR VOMITING Last administered on 08/13/16 02:02; Admin Dose 4 MG; Start 08/12/16 at 18:00 Acetaminophen (Tylenol Tab) 650 mg Q6H PRN PO PAIN LEVEL 1-3 OR FEVER Last administered on 08/13/16 09:11; Admin Dose 650 MG; Start 08/12/16 at 18:00 Acetaminophen/ Hydrocodone Bitart ([place] (5/325)) 1 tab Q6H PRN PO MODERATE PAIN LEVEL 4-6; Start 08/12/16 at 18:00 Morphine Sulfate (morphine) 2 mg Q4H PRN IV SEVERE PAIN LEVEL 7-10; Start 08/12 at 18:00 Docusate Sodium (Colace) 100 mg Q12H PRN PO CONSTIPATION; Start 08/12/16 at 18: 00 Magnesium Hydroxide (Milk Of Mag) 30 ml DAILY PRN PO CONSTIPATION; Start at 18:00 Sodium Biphosphate/ Sodium Phosphate (Fleet Enema) 133 ml DAILY PRN AR CONSTIPATION; Start 08/12/16 at 18:00 Heparin Sodium (Porcine) 5000 unit 5,000 unit Q12 SC Last administered on 09:14; Admin Dose 5,000 UNIT; Start 08/12/16 at 21:00 Sodium Chloride (1/2 NS) 1,000 ml @ 75 mls/hr [id number] IV Last administered on 08/12/16 19:30; Admin Dose 75 MLS/HR; Start 08/12/16 at 18:00 Lorazepam 0.5 mg 0.5 mg Q6H PRN IV ANXIETY; Start 08/12/16 at 18:00 Piperacillin Sod/ Tazobactam Sod (Zosyn 3.375gm/ 100 ml (Pmx)) 100 ml @ 200 mls /hr Q6 IVPB Last administered on 08/13/16 05:58; Admin Dose 200 MLS/HR; Start 08/13/16 at 00:00 Hydralazine HCl (Apresoline) 10 mg Q6H PRN IV ELEVATED BLOOD PRESSURE; Start at 18:00 Nitroglycerin (Nitroglycerin (Sl Tab) 0.4 Mg) 1 tab Q5M PRN SL ANGINA; Start at 18:00 Ranitidine HCl (Zantac) 150 mg BID PO Last administered on 08/13/16 09:11; Admin Dose 150 MG; Start 08/12/16 at 21:00 GRANT WINSLOW M.D. Aug 13, 2016 10:56
--- NOTE | 2016-08-13 11:57 | PN ---
Date/Time of Note Date/Time of Note DATE: 08/13/16 TIME: 11:53 Assessment/Plan VTE Prophylaxis VTE Prophylaxis Intervention: heparin Lines/Catheters IV Catheter Type (from [place]): Peripheral IV Assessment/Plan Chief Complaint/Hosp Course ASSESSMENT AND PLAN: 45-year-old female coming in with worsening right upper quadrant pain for the last 3 weeks with signs of new liver masses extending into the gallbladder wall, concerning for cancer/metastasis. 1. Abdominal pain. Again secondary likely to the liver masses and gallbladder extension of the mass. CEA, CA 19-9, and 125 are all elevated. Strong concern unfortunately for cancer, possibly hepatobilary in origin. - for ERCP later today, f/u rec's; anti-emetic's for nausea control - f/u hepatobiliary consult, hematology consult, and GI consult rec's. - pain control - continue Zosyn antibiotics for now, given the elevated white blood cell count. - Tylenol p.r.n. pain and fevers. 2. For asthma - DuoNebs p.r.n. 3. Gastrointestinal prophylaxis - H2 lena. 4. Deep venous thrombosis prophylaxis - heparin subq. Problems: Subjective 24 Hr Interval Summary Free Text/Dictation Pt still with some nausea smpts. Seen by clinical sales consultant teams. MRCP performed, and awaiting ERCP for later today. Exam/Review of Systems Vital Signs Vitals Vital Signs Date Time Temp Pulse Resp B/P Pulse Ox O2 Delivery O2 Flow Rate FiO2 08/13/16 07:36 98.2 71 18 101/57 99 08/12/16 22:16 Room Air Intake and Output 08/12/16 08/12/16 08/13/16 15:00 23:00 07:00 Intake Total 830 ml Balance 830 ml Exam GENERAL: The patient is lying in bed in mild to moderate distress secondary to pain, but alert. HEENT: Pupils equal, round, react to light. Extraocular muscles intact. NECK: Supple. No thyromegaly. LUNGS: Clear to auscultation bilaterally. No wheezes. CARDIOVASCULAR: S1 and S2 are heard. No murmurs, rubs, or gallops. ABDOMEN: Soft, but tenderness to palpation, right upper quadrant area, and also in the right lower quadrant area, in the mid abdomen area. There is normal bowel sounds. No rebound or guarding. Nondistended. MUSCULOSKELETAL: No lower extremity edema bilaterally. NEUROLOGIC: No focal deficits. Results Result Diagram: 08/13/16 0524 08/13/16 0524 Results 24 hrs Laboratory Tests Test 08/12/16 13:50 08/12/16 17:50 08/13/16 05:24 White Blood Count 12.1 H 12.2 H Red Blood Count 5.22 4.48 Hemoglobin 12.9 11.3 L Hematocrit 40.2 35.2 L Mean Corpuscular Volume 77.0 L 78.6 L Mean Corpuscular Hemoglobin 24.7 L 25.2 L Mean Corpuscular Hemoglobin Concent 32.1 32.1 Red Cell Distribution Width 14.2 14.1 Platelet Count 269 245 Mean Platelet Volume 10.5 H 10.8 H Neutrophils % 68.0 79.5 H Lymphocytes % 15.9 11.3 L Monocytes % 7.1 7.3 Eosinophils % 8.1 H 1.1 Basophils % 0.5 0.4 Nucleated Red Blood Cells % 0.0 0.0 Neutrophils # 8.2 H 9.7 H Lymphocytes # 1.9 1.4 Monocytes # 0.9 0.9 Eosinophils # 1.0 H 0.1 Basophils # 0.1 0.1 Nucleated Red Blood Cells # 0.0 0.0 Urine Color YELLOW Urine Clarity SLIGHTLY CLOUDY A Urine pH 5.0 Urine Specific [place] 1.021 Urine Ketones 2+ H Urine Nitrite NEGATIVE Urine Bilirubin NEGATIVE Urine Urobilinogen NEGATIVE Urine Leukocyte Esterase NEGATIVE Urine Microscopic RBC > 182 H Urine Microscopic WBC 18 H Urine Squamous Epithelial Cells FEW Urine Bacteria FEW A Urine Mucus FEW A Urine Yeast (Budding) FEW A Urine Hemoglobin 3+ H Urine Glucose NEGATIVE Urine Total Protein 1+ H Sodium Level 139 136 Potassium Level 4.7 4.0 Chloride Level 102 105 Carbon Dioxide Level 26 18 L Anion Gap 16 17 H Blood Urea Nitrogen 11 10 Creatinine 0.76 0.62 Glucose Level 77 48 #*L Calcium Level 9.5 7.9 L Total Bilirubin 0.9 Direct Bilirubin 0.00 Indirect Bilirubin 0.9 Aspartate Amino Transf (AST/SGOT) 48 H Alanine Aminotransferase (ALT/SGPT) 41 Alkaline Phosphatase 83 Total Protein 8.6 H Albumin 5.1 H Globulin 3.50 H Albumin/Globulin Ratio 1.45 Lipase 137 Prothrombin Time 13.1 Prothrombin Time Ratio 1.0 INR International Normalized Ratio 0.99 Activated Partial Thromboplast Time 28.5 Alpha Fetoprotein 1.34 Carcinoembryonic Antigen 106.0 H CA 19-9 Antigen 3420.0 H CA 125 Antigen 36.1 H Free Thyroxine 1.40 Hemoglobin A1c 5.4 Phosphorus Level 3.8 Magnesium Level 1.9 Triglycerides Level 54 Cholesterol Level 167 LDL Cholesterol, Calculated 88 HDL Cholesterol 68 Cholesterol/HDL Ratio 2.4 Thyroid Stimulating Hormone (TSH) Pending Medications Medications Current Medications Acetaminophen (Tylenol Tab) 650 mg Q6H PRN PO PAIN LEVEL 1-3 OR FEVER Last administered on 08/13/16 09:11; Admin Dose 650 MG; Start 08/12/16 at 18:00 Acetaminophen/ Hydrocodone Bitart ([place] (5/325)) 1 tab Q6H PRN PO MODERATE PAIN LEVEL 4-6; Start 08/12/16 at 18:00 Morphine Sulfate (morphine) 2 mg Q4H PRN IV SEVERE PAIN LEVEL 7-10; Start 08/12 at 18:00 Docusate Sodium (Colace) 100 mg Q12H PRN PO CONSTIPATION; Start 08/12/16 at 18: 00 Magnesium Hydroxide (Milk Of Mag) 30 ml DAILY PRN PO CONSTIPATION; Start at 18:00 Sodium Biphosphate/ Sodium Phosphate (Fleet Enema) 133 ml DAILY PRN ID CONSTIPATION; Start 08/12/16 at 18:00 Heparin Sodium (Porcine) (Heparin (5000 Units/0.5 ml)) 5,000 unit Q12 SC Last administered on 08/13/16 09:14; Admin Dose 5,000 UNIT; Start 08/12/16 at 21:00 Lorazepam 0.5 mg 0.5 mg Q6H PRN IV ANXIETY; Start 08/12/16 at 18:00 Piperacillin Sod/ Tazobactam Sod (Zosyn 3.375gm/ 100 ml (Pmx)) 100 ml @ 200 mls /hr Q6 IVPB Last administered on 08/13/16 11:04; Admin Dose 200 MLS/HR; Start 08/13/16 at 00:00 Hydralazine HCl (Apresoline) 10 mg Q6H PRN IV ELEVATED BLOOD PRESSURE; Start at 18:00 Nitroglycerin (Nitroglycerin (Sl Tab) 0.4 Mg) 1 tab Q5M PRN SL ANGINA; Start at 18:00 Ranitidine HCl (Zantac) 150 mg BID PO Last administered on 08/13/16t 09:11; Admin Dose 150 MG; Start 08/12/16 at 21:00 Trimethobenzamide HCl 200 mg 200 mg Q6H PRN IM NAUSEA AND/OR VOMITING; Start at 12:00 Ondansetron HCl/ Sodium Chloride (Zofran Inj/NS) 54 ml @ 216 mls/hr Q6H PRN IV NAUSEA AND/OR VOMITING; Start 08/13/16 at 12:00 Hydromorphone HCl 1 mg 1 mg Q4H PRN IV PAIN; Start 08/13/16 at 12:00 Dextrose/Sodium Chloride (D5-1/2ns) 1,000 ml @ 75 mls/hr [id number] IV ; Start at 12:00 Procedures Procedures MRCP (08/13/16): IMPRESSION: Evaluation of the liver is limited without contrast. Multiple masses are seen in the left lobe of the liver and anterior segment of the right lobe of the liver the largest approximately 7.2 x 5.3 cm centered in the medial segment of the left lobe which appears to extend to the gallbladder fundus. Cholelithiasis. Mild central intrahepatic biliary dilatation and dilatation of the extrahepatic bile duct to approximately 8 mm diameter. Please see above. JONNY HOOD Aug 13, 2016 11:57
[2016-08-13] MEDS ORDERED: ONDANSETRON 4 MG INJ IV PRN ×2 (12:00→20:30)
[2016-08-13] MEDS ORDERED: TRIMETHOBENZAMIDE 100 MG/ML VIAL IM PRN (12:00)
[2016-08-13] MEDS ORDERED: HYDROmorphONE 1 MG/ML SYG IV PRN (12:00)
[2016-08-13] MEDS: DEXTROSE 5%-0.45% NACL 1,000 ML IV SCH (12:03)
[2016-08-13 12:42] LABS: RETICULOCYTE COUNT % 2.1 % (0.5-1.5)
[2016-08-13 12:42] LABS: THYROID STIMULATING HORMONE 0.229 MIU/L (0.465-4.680)
[2016-08-13 12:50] LABS: LACTATE DEHYDROGENASE 1324 IU/L (313-618)
[2016-08-13 12:51] LABS: IRON 82 ug/dl (35-150)
[2016-08-13 13:00] LABS: TOTAL IRON BINDING CAPACITY 319 ug/dl (241-421)
[2016-08-13 13:23] LABS: THYROID STIMULATING HORMONE 0.283 MIU/L (0.465-4.680)
[2016-08-13 13:27] LABS: FERRITIN 55.6 ng/ml (6.2-137.0)
[2016-08-13] MEDS: ONDANSETRON INJ 8 MG in SOD CHLORIDE 0.9% 50 ML IV PRN (13:34)
[2016-08-13 14:02] LABS: FOLATE > 20.0 ng/ml (2.8-20.0)
--- NOTE | 2016-08-13 14:32 | CONS ---
[facility] INITIAL INPATIENT CONSULTATION NOTE DATE OF CONSULTATION: 08/13/2016 PLACE OF SERVICE: [facility], 6th floor. 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 Differential also includes pancreatic malignancy versus gallbladder malignancy. Hepatocellular carcinoma is less likely. Metastatic disease is also less likely, and we did not see any other evidence of disease in the rest of her abdominal cavity. As it presents, I do not believe that the patient's case is a surgical case. I cannot see any way that we could surgically render the patient without disease and we would certainly have to perform a very complex operation which may have to include a hepatectomy, in addition to a Whipple procedure. In these situations, the likelihood of long-term benefit to the patient is extremely small to none. Certainly, if this is gallbladder cancer it is considered to be stage IV. The way the images appear render this malignant process essentially at this stage IV regardless of the point of origin. It would be important for us to have tissue biopsy to try and differentiate between the site of origin, if possible, and then gear systemic chemotherapy towards this origin. Local treatment of the liver is an option that we may consider in the future if the patient becomes more symptomatic, but I do not believe that there is any indication for using that at the moment. The patient should be followed in a multidisciplinary fashion with involvement of oncology, radiation oncology and surgery, in addition to her regular physicians. I explained all of this in detail to the patient and her family and answered all of their questions to the best of my ability. I believe that the patient understood and agreed with the plan. With above assessment, I have recommended the followin. Percutaneous biopsy of the liver lesion, to include biopsy of normal liver as well. I discussed this with Dr. Pickard from interventional radiology, and our plan is to accomplish this in the next 12 to 24 hours. 2. Oncology consultation. 3. Multidisciplinary tumor board presentation. 4. Potential need for endoscopic evaluation, including upper and lower endoscopy. ERCP may be considered, although the exact benefit of this with the given pictures and the numbers are not quite clear to me at this time. 5. Consideration for involvement of supportive care services. UPDATED CLINICAL SUMMARY: A very pleasant 45-year-old lady who is otherwise healthy, presenting with several masses in her liver to [facility] through the emergency department on 08/12/2016. COMORBIDITIES: 1. Status post tubal ligation. 2. History of hypertension and skin cancer in the family. DATE OF ADMISSION: 08/12/2016 HISTORY OF PRESENT ILLNESS: Patient is a very pleasant, but unfortunate 45-year -old young lady, who has otherwise been healthy, presenting to [facility] ED with 2-3 day history of worsening abdominal discomfort that has been noticed to be present for the last 3 weeks. No sig n/v prior to this. No sig weight loss. No other major complaints. No prior issues with liver, pancreas, biliary system or gallbladder. ALLERGIES: NO KNOWN DRUG ALLERGIES. HOME MEDICATIONS: Ventolin and Zantac. SOCIAL HISTORY: The patient lives with her family. She has a daughter and a younger son who is mentally disabled. She does not report any smoking, drinking , or intravenous drug use. FAMILY HISTORY: Hypertension in mother, and father with skin disease. REVIEW OF SYSTEMS: Other than the above-mentioned, there are no other pertinent positives or pertinent negatives in a complete 14-point review of systems. PHYSICAL EXAMINATION: GENERAL: The patient appears to be a very pleasant, lady of [place] descent, appearing her stated age, lying in bed comfortably, and in no acute distress. BMI is 22.9. VITAL SIGNS: Temperature 98.2, blood pressure 101/57, pulse 71, respiratory rate 18, pulse oximetry 99% on room air. HEENT: Normocephalic and atraumatic. Extraocular muscles and hearing are grossly intact bilaterally and symmetrically. Sclerae are nonicteric. Oral cavity is clear; oral mucosa appeared to be pink and moist. Dentition: fair. NECK: Supple. There is no lymphadenopathy or JVD. There is no submental, submandibular or supraclavicular lymphadenopathy. CHEST: Rises symmetrically with each breath; patient is breathing comfortably. There are no audible wheezes, rales or rhonchi on the gross exam. HEART: Pulse is regular and palpable on the left wrist. Capillary refill was normal. Carotid pulses are palpable bilaterally and symmetrically in the neck. EXTREMITIES: Lower extremities contain no pitting edema around the ankles bilaterally and symmetrically. ABDOMEN: Soft, nondistended, and mildly tender to palpation in the upper quadrants, especially mid upper and right upper quadrants. There is a vague sense of a mass in the subcostal midclavicular line. There are no peritoneal signs or guarding. No evidence of organomegaly otherwise, caput medusae, engorged subcutaneous veins, or ascites. SKIN: Appears to be pink and feels warm to touch. NEUROLOGIC: Awake, alert, and follows commands appropriately. LABORATORY VALUES: White blood cell count 12.2, hemoglobin 11.3, platelets 245. Electrolytes are normal. CO2 18. Hemoglobin A1c 5.4, creatinine 0.62, total bilirubin 0.9. AST 48, ALT 41, alkaline phosphatase 83, albumin 5.1, lipase 137. CEA 106. CA19-9 of 3,420. CA-125 of 36. Alpha fetoprotein 1.34. INR 0.99. IMAGING: The patient underwent an abdominal and pelvic CT scan that demonstrated at least 3 liver masses, the largest of which measures up to 7.3 cm , with direct extension into the fundus of the gallbladder. Findings are most consistent with metastatic disease. Prominent common bile duct with abrupt cutoff distally, which may indicate distal partial obstruction. Atherosclerotic vascular disease was also noted. She also underwent MRCP that demonstrated multiple masses, again in the liver, the largest of which was 7.2 x 5.3 cm. Cholelithiasis and mild central intrahepatic biliary dilatation and dilatation of the extrahepatic bile duct to approximately 8 mm diameter. Note that I personally reviewed all of the available and pertinent images and I agree in general with their overall reported findings. My impression of the images are significant mass presence within segment 4B, with involvement of segments 5, 6, 7 and 8, as well as a small lesion in segment 2 and some extension of the 4B lesion in segment 3. Caudate though appears to be spared. I do think there is lymphadenopathy in the usman hepatis and there is thickening of tissue around the common bile duct, down into the head of the pancreas, but the pancreas itself appears to be normal and I do not see any significant dilatation of the pancreatic duct. Thank you again for allowing us to participate in the care of this very pleasant lady and her wonderful family. If there are any questions, please feel free to contact me at [phone]. Dictated By: CONY THEODORE/MAYO Conf#: [id number] DID#: [id number]
[2016-08-13] MEDS ORDERED: INDOMETHACIN 50 MG SUPP PR ONE (16:27)
[2016-08-13] MEDS ORDERED: IOHEXOL 300MG/ML 30 ML BTL ONE (16:27)
[2016-08-13] MEDS ORDERED: ALBUTEROL 0.5% (NEB) 2.5 MG/0.5 ML AMP ONE (18:43)
[2016-08-13] MEDS ORDERED: ALBUTEROL 0.083% (NEB) 2.5 MG/3 ML AMP HHN STA (18:52)
[2016-08-13] MEDS ORDERED: NEOSTIGMINE 3 MG/3 ML SYRINGE ONE (19:52)
[2016-08-13] MEDS ORDERED: PROPOFOL 20 ML ONE (19:52)
[2016-08-13] MEDS ORDERED: SUCCINYLCHOLINE CHLORIDE 100 MG/5 ML SYG IV ONE (19:52)
[2016-08-13] MEDS ORDERED: ROCURONIUM 50 MG INJ ONE (19:52)
[2016-08-13] MEDS ORDERED: LIDOCAINE 2% (SDV) 5 ML INJ ONE (19:52)
[2016-08-13] MEDS ORDERED: DIPHENHYDRAMINE 50 MG INJ IV PRN (20:30)
[2016-08-13] MEDS ORDERED: MEPERIDINE 25 MG INJ IV PRN (20:30)
[2016-08-13] MEDS ORDERED: HYDROmorphONE (0.2 MG/ML) 10ML SYG IV PRN ×2 (20:30)
[2016-08-13] MEDS ORDERED: METOCLOPRAMIDE 10 MG INJ IV PRN (20:30)
[2016-08-13] MEDS: FENTAnyl 50 MCG/ML VIAL IV PRN ×2 (21:20→21:35)
[2016-08-13] MEDS ORDERED: VITAMIN A & D 5 GM OINT PACKET TOP ONE (22:45)
[2016-08-14 00:30] VITALS: BP 130/74; PULSE 82; RESP 18
[2016-08-14 01:30] VITALS: BP 121/73; PULSE 74; RESP 20
[2016-08-14] MEDS: ONDANSETRON INJ 8 MG in SOD CHLORIDE 0.9% 50 ML IV PRN (02:12)
[2016-08-14] MEDS: PIPER-TAZO 3.375 GM IV (PMX) 100 ML IVPB SCH ×2 (05:17→12:41)
[2016-08-14] MEDS: DEXTROSE 5%-0.45% NACL 1,000 ML IV SCH (05:17)
[2016-08-14 05:30] VITALS: BP 124/68; PULSE 60; RESP 20
--- NOTE | 2016-08-14 06:34 | GILP ---
DATE OF PROCEDURE: NAME OF PROCEDURE: ERCP, sphincterotomy, brushings of the distal bile duct, biopsy of the distal bi le duct, a 10 x 6 self-expanding metal stent was placed. PREOPERATIVE DIAGNOSIS: Patient presenting with a history of multiple masses in the liver, gallblad ace mass is suspected. There is a biliary obstruction in the distal bile duct. At this time the pro cedure is performed to do biopsies and brushings and place a metal stent, which has been accomplishe d. DESCRIPTION OF PROCEDURE: After informed written consent was obtained, the patient was intubated by anesthesiologist, Dr. Khoury. While the patient was in prone position, the Olympus video side-v iewing duodenoscope was inserted into the oropharynx, then into the esophagus, then stomach and then into the duodenum. Ampulla appeared to be appearing normal, in a normal location. By using the Dr hinkle, cannulation of the pancreatic duct was performed initially and also because of the common c hannel, the common bile duct was also visualized. There seems to obstruction at the distal bile lazaro t which looks like a cutoff sign, probably caused by neoplasm. At this time, one was left beh ind in the pancreatic duct and subsequently with the help of the guidewire, the common bile duct was cannulated. The common bile duct showed significant dilatation. Both intra and extrahepatic ducts were noted to be dilated. The distal bile duct, there seems to be a cutoff sign and this could be a tumor in this location. At this time a sphincterotomy was performed. About an 8-mm cut of the sp hincter was made by using the cutting wire of the Dreamtome. At this time pediatric biopsy forceps were inserted into the distal bile duct abnormal area. Two biopsies were obtained. Brushing also wa s done from this area. At this time a 10 x 6 self-expandable colored metal stent was placed into th e bile duct, across the ampulla, into the duodenum. Photographs were obtained and the procedure was terminated. PLAN: Recommend to wait for the pathology report. Dictated By: JULIANO FAY MD NC/NTS Conf#: [id number] DID#: [id number] CC: CONY BATEMAN MD; JONNY HOOD;*End*
[2016-08-14 07:30] VITALS: BP 125/73; PULSE 71; RESP 18
[2016-08-14 08:03] LABS: ADD SCAN DIFF NO
[2016-08-14 08:06] LABS: BASOPHILS % 0.3 % (0.0-2.0); EOSINOPHILS % 0.3 % (0.0-7.0); HEMATOCRIT 34.8 % (37.0-47.0); HEMOGLOBIN 11.3 g/dl (12.0-16.0); LYMPHOCYTES % 8.8 % (15.0-51.0); MEAN CORPUSCULAR HEMOGLOBIN 24.8 pg (29.0-33.0); MEAN CORPUSCULAR HGB CONC 32.5 g/dl (32.0-37.0); MEAN CORPUSCULAR VOLUME 76.5 fl (82.0-101.0); MEAN PLATELET VOLUME 9.8 fl (7.4-10.4); MONOCYTE # 0.9 10^3/ul (0.3-0.9); MONOCYTES % 7.6 % (0.0-11.0); NEUTROPHIL # 9.3 10^3/ul (1.6-7.5); NEUTROPHILS % 82.6 % (39.0-77.0); PLATELET COUNT 245 10^3/UL (140-415); RED BLOOD COUNT 4.55 10^6/ul (4.20-5.40); RED CELL DISTRIBUTION WIDTH 14.2 % (11.5-14.5); WHITE BLOOD COUNT 11.2 10^3/ul (4.8-10.8)
[2016-08-14 08:34] LABS: ALBUMIN 3.5 g/dl (3.3-4.9); BILIRUBIN,INDIRECT 0.5 mg/dl (0-1.1); BILIRUBIN,TOTAL 0.5 mg/dl (0.2-1.3)
[2016-08-14 08:38] LABS: CALCIUM 7.4 mg/dl (8.4-10.2); CREATININE 0.58 mg/dl (0.44-1.00)
[2016-08-14] MEDS: RANITIDINE 150 MG TAB PO SCH ×2 (09:00→12:41)
--- NOTE | 2016-08-14 09:02 | RADRPT ---
PROCEDURE: X-ray fluoroscopy guidance CLINICAL INDICATION: Abdominal pain, ERCP, fluoroscopic guidance TECHNIQUE: Fluoroscopic guidance was utilized for an intraoperative procedure. COMPARISON: None available FINDINGS: Fluoroscopic guidance was utilized for and intraoperative procedure. 304 seconds of fluoroscopy time was utilized for the procedure. 8 x-ray images were obtained during the procedure in progress. Dianna l images demonstrate a metallic stent in the common bile duct. IMPRESSION: X-ray fluoroscopic guidance utilized for intraoperative procedure. Metallic stent in the common bile duct. Please see procedure note for details. RPTAT: AA .Bryan Santiago MD, Date Time Electronically viewed and signed by .Bryan Santiago MD, on 08/14/2016 09:02 .P/
[2016-08-14] MEDS ORDERED: LIDOCAINE 1% (MDV) 20 ML INJ ONE (09:45)
[2016-08-14] MEDS ORDERED: DIPHENHYDRAMINE 50 MG INJ ONE (09:45)
[2016-08-14] MEDS ORDERED: FENTAnyl 50 MCG/ML VIAL ONE (09:45)
[2016-08-14] MEDS ORDERED: MIDAZOLAM 1 MG/ML 2 ML INJ ONE (09:46)
--- NOTE | 2016-08-14 11:18 | RADRPT ---
PROCEDURE: CT guided liver biopsy. CLINICAL INDICATION: Multiple liver masses. TECHNIQUE: Informed consent was obtained. The procedure, risks, benefits, complications and alternatives were e xplained to the patient. Risks including bleeding and infection were explained. The patient understo od and was willing to proceed. A procedural pause was performed. The patient's name, date of , and procedure to be performed were verified. One or more of the following dose reduction techniqu es were used: Automated exposure control, adjustment of the mA and/or kV according to patient size, use of iterative reconstruction technique. Using local anesthetic, sterile technique and CT guidance, a 20-gauge automated core biopsy needle w as used to biopsy the mass in the left hepatic lobe anteriorly. Multiple passes were made. Adequat e tissue was obtained according to the pathologist present during the procedure. The needle was rem leighton. A postprocedural scan was performed. A dressing was applied. The patient tolerated procedure well. COMPARISON: None. FINDINGS: Initial images demonstrate the tip of the needle at the edge of the lesion in question. Post biopsy images demonstrate no immediate complication. IMPRESSION: 1. Successful CT guided liver biopsy. RPTAT: QQ .Tejas Pickard MD, Date Time Electronically viewed and signed by .Tejas Pickard MD, MD on 08/14/2016 11:18 .R/
[2016-08-14 11:23] VITALS: BP 136/76; RESP 18
--- NOTE | 2016-08-14 12:08 | CONS ---
Date/Time of Note Date/Time of Note DATE: 08/14/16 TIME: 11:59 Assessment/Plan Assessment/Plan Chief Complaint/Hosp Course 45 yo with RUQ pain now found with multiple liver masses and biliary obstruction in the setting of an elevated CA 19-9. There is high likelihood for metastatic cholangiocarcinoma # Liver masses - given elevated CA 19-9 of 3420 there is a high likelihood patient has an underlying hepatobiliary malignancy. pt has been evaluated by hepatobiliary surgery who has deemed that patient not a candidate for surgery -pt to have CT Guided liver bx today -further oncologic recommendations on chemotherapy will depend on the results of the biopsy # Biliary Obstruction -pt is s/p ERCP, sphincterotomy, and placement of a 10 x 6 self-expanding metal stent . # Microcytic Anemia -although iron studies appear normal, the ferritin of just 55 in the setting of inflammation is low and may represent iron deficiency. will therefore start po iron at this time -need to follow up haptoglobin to definitively rule out hemolysis. the high LDH is likely from the underlying malignancy -given concern for iron deficiency, will check iron studies -vit b12 and folate levels are ok -TSH low but T4 levels wnl #leukocytosis - likely secondary to underlying inflammatory process. pt is s/p 1 dose of Zosn but does not appear to be clinically infected -will continue to monitor Problems: (1) Metastatic disease Status: Acute (2) Anemia, iron deficiency Status: Acute (3) Gallbladder cancer Status: Chronic Consultation Date/Type/Reason Admit Date/Time Aug 12, 2016 at 17:07 Initial Consult Date August 13, 2016 Type of Consultation: oncology Reason for Consultation liver masses Referring Provider: JONNY HOOD 24 HR Interval Summary Free Text/Dictation pt had ERCP done yesterday with stent placement and has some mild abdominal pain . to have a CT guided liver bx done today. pt was evaluated by hepatobiliary surgery who deemed the disease very extensive and not amenable to surgical resection Exam/Review of Systems Vital Signs Vitals Vital Signs Date Time Temp Pulse Resp B/P Pulse Ox O2 Delivery O2 Flow Rate FiO2 08/14/16 11:23 98.2 75 18 136/76 100 08/14/16 07:30 Room Air 08/13/16 21:00 10.0 08/13/16 19:01 21 Intake and Output 08/13/16 08/13/16 08/14/16 15:00 23:00 07:00 Intake Total 1254 ml Balance 1254 ml Exam Constitutional: alert, distress, oriented Psych: anxiety Head: normocephalic Eyes: nl conjunctiva ENMT: nl external ears & nose Neck: non-tender, supple Respiratory: clear to auscultation Cardiovascular: nl pulses, regular rate and rhythm Gastrointestinal: other (tenderness in RUQ) Musculoskeletal: nl extremities to inspection Extremities: normal pulses Results Result Diagram: 08/14/16 0740 08/14/16 0740 Results 24 hrs Laboratory Tests Test 08/13/16 12:16 08/14/16 07:40 08/14/16 08:18 Absolute Reticulocyte Count 0.099 Percent Reticulocyte Count 2.1 H Iron Level 82 Total Iron Binding Capacity 319 Percent Iron Saturation 26 Ferritin 55.6 Lactate Dehydrogenase 1324 H Vitamin B12 Level > 1000 H Folate > 20.0 H Thyroid Stimulating Hormone (TSH) 0.283 L White Blood Count 11.2 H Red Blood Count 4.55 Hemoglobin 11.3 L Hematocrit 34.8 L Mean Corpuscular Volume 76.5 L Mean Corpuscular Hemoglobin 24.8 L Mean Corpuscular Hemoglobin Concent 32.5 Red Cell Distribution Width 14.2 Platelet Count 245 Mean Platelet Volume 9.8 Neutrophils % 82.6 H Lymphocytes % 8.8 L Monocytes % 7.6 Eosinophils % 0.3 Basophils % 0.3 Nucleated Red Blood Cells % 0.0 Neutrophils # 9.3 H Lymphocytes # 1.0 Monocytes # 0.9 Eosinophils # 0.0 Basophils # 0.0 Nucleated Red Blood Cells # 0.0 Sodium Level 134 L Potassium Level 4.0 Chloride Level 109 Carbon Dioxide Level 19 L Anion Gap 10 # Blood Urea Nitrogen 3 L Creatinine 0.58 Glucose Level 142 # Calcium Level 7.4 L Total Bilirubin 0.5 Direct Bilirubin 0.00 Indirect Bilirubin 0.5 Aspartate Amino Transf (AST/SGOT) 62 H Alanine Aminotransferase (ALT/SGPT) 65 Alkaline Phosphatase 62 Total Protein 6.0 #L Albumin 3.5 # Bedside Glucose 148 Medications Medications Current Medications Acetaminophen (Tylenol Tab) 650 mg Q6H PRN PO PAIN LEVEL 1-3 OR FEVER Last administered on 08/13/16t 16:00; Admin Dose 650 MG; Start 08/12/16 at 18:00 Acetaminophen/ Hydrocodone Bitart ([place] (5/325)) 1 tab Q6H PRN PO MODERATE PAIN LEVEL 4-6; Start 08/12/16 at 18:00 Morphine Sulfate (morphine) 2 mg Q4H PRN IV SEVERE PAIN LEVEL 7-10; Start 08/12 at 18:00 Docusate Sodium (Colace) 100 mg Q12H PRN PO CONSTIPATION; Start 08/12/16 at 18: 00 Magnesium Hydroxide (Milk Of Mag) 30 ml DAILY PRN PO CONSTIPATION; Start at 18:00 Sodium Biphosphate/ Sodium Phosphate (Fleet Enema) 133 ml DAILY PRN [place] CONSTIPATION; Start 08/12/16 at 18:00 Lorazepam 0.5 mg 0.5 mg Q6H PRN IV ANXIETY; Start 08/12/16 at 18:00 Piperacillin Sod/ Tazobactam Sod (Zosyn 3.375gm/ 100 ml (Pmx)) 100 ml @ 200 mls /hr Q6 IVPB Last administered on 08/14/16 05:17; Admin Dose 200 MLS/HR; Start 08/13/16 at 00:00 Hydralazine HCl (Apresoline) 10 mg Q6H PRN IV ELEVATED BLOOD PRESSURE; Start at 18:00 Nitroglycerin (Nitroglycerin (Sl Tab) 0.4 Mg) 1 tab Q5M PRN SL ANGINA; Start at 18:00 Ranitidine HCl (Zantac) 150 mg BID PO Last administered on 08/13/16 09:11; Admin Dose 150 MG; Start 08/12/16 at 21:00 Trimethobenzamide HCl 200 mg 200 mg Q6H PRN IM NAUSEA AND/OR VOMITING; Start at 12:00 Ondansetron HCl/ Sodium Chloride (Zofran Inj/NS) 54 ml @ 216 mls/hr Q6H PRN IV NAUSEA AND/OR VOMITING Last administered on 08/14/16 02:12; Admin Dose 216 MLS/HR; Start 08/13/16 at 12:00 Hydromorphone HCl 1 mg 1 mg Q4H PRN IV PAIN Last administered on 08/14/16 08: 11; Admin Dose 1 MG; Start 08/13/16 at 12:00 Dextrose/Sodium Chloride (D5-1/2ns) 1,000 ml @ 75 mls/hr [id number] IV Last administered on 08/14/16t 05:17; Admin Dose 75 MLS/HR; Start 08/13/16 at 12:00 Heparin Sodium (Porcine) (Heparin (5000 Units/0.5 ml)) 5,000 unit Q12 SC ; Start 08/14/16 at 21:00 GRANT WINSLOW M.D. Aug 14, 2016 12:08
--- NOTE | 2016-08-14 12:16 | CONS ---
Date/Time of Note Date/Time of Note DATE: 08/14/16 TIME: 12:13 Assessment/Plan Assessment/Plan Chief Complaint/Hosp Course a]metastatic diseases with biliary obstruction s/p SEMS[metal stent] s/p liver bx plan ok to d/c and fallow as op with oncologist Problems: Consultation Date/Type/Reason Admit Date/Time Aug 12, 2016 at 17:07 Initial Consult Date Type of Consultation: oncology Referring Provider: JONNY HOOD 24 HR Interval Summary Free Text/Dictation s/p ercp s/p liver bx no complaints Exam/Review of Systems Vital Signs Vitals Vital Signs Date Time Temp Pulse Resp B/P Pulse Ox O2 Delivery O2 Flow Rate FiO2 08/14/16 11:23 98.2 75 18 136/76 100 08/14/16 07:30 Room Air 08/13/16 21:00 10.0 08/13/16 19:01 21 Intake and Output 08/13/16 08/13/16 08/14/16 15:00 23:00 07:00 Intake Total 1254 ml Balance 1254 ml Exam abd soft Results Result Diagram: 08/14/16 0740 08/14/16 0740 Results 24 hrs Laboratory Tests Test 08/13/16 12:16 08/14/16 07:40 08/14/16 08:18 Absolute Reticulocyte Count 0.099 Percent Reticulocyte Count 2.1 H Iron Level 82 Total Iron Binding Capacity 319 Percent Iron Saturation 26 Ferritin 55.6 Lactate Dehydrogenase 1324 H Vitamin B12 Level > 1000 H Folate > 20.0 H Thyroid Stimulating Hormone (TSH) 0.283 L White Blood Count 11.2 H Red Blood Count 4.55 Hemoglobin 11.3 L Hematocrit 34.8 L Mean Corpuscular Volume 76.5 L Mean Corpuscular Hemoglobin 24.8 L Mean Corpuscular Hemoglobin Concent 32.5 Red Cell Distribution Width 14.2 Platelet Count 245 Mean Platelet Volume 9.8 Neutrophils % 82.6 H Lymphocytes % 8.8 L Monocytes % 7.6 Eosinophils % 0.3 Basophils % 0.3 Nucleated Red Blood Cells % 0.0 Neutrophils # 9.3 H Lymphocytes # 1.0 Monocytes # 0.9 Eosinophils # 0.0 Basophils # 0.0 Nucleated Red Blood Cells # 0.0 Sodium Level 134 L Potassium Level 4.0 Chloride Level 109 Carbon Dioxide Level 19 L Anion Gap 10 # Blood Urea Nitrogen 3 L Creatinine 0.58 Glucose Level 142 # Calcium Level 7.4 L Total Bilirubin 0.5 Direct Bilirubin 0.00 Indirect Bilirubin 0.5 Aspartate Amino Transf (AST/SGOT) 62 H Alanine Aminotransferase (ALT/SGPT) 65 Alkaline Phosphatase 62 Total Protein 6.0 #L Albumin 3.5 # Bedside Glucose 148 Medications Medications Current Medications Acetaminophen (Tylenol Tab) 650 mg Q6H PRN PO PAIN LEVEL 1-3 OR FEVER Last administered on 08/13/16 16:00; Admin Dose 650 MG; Start 08/12/16 at 18:00 Acetaminophen/ Hydrocodone Bitart ([place] (5/325)) 1 tab Q6H PRN PO MODERATE PAIN LEVEL 4-6; Start 08/12/16 at 18:00 Morphine Sulfate (morphine) 2 mg Q4H PRN IV SEVERE PAIN LEVEL 7-10; Start 08/12 at 18:00 Docusate Sodium (Colace) 100 mg Q12H PRN PO CONSTIPATION; Start 08/12/16 at 18: 00 Magnesium Hydroxide (Milk Of Mag) 30 ml DAILY PRN PO CONSTIPATION; Start at 18:00 Sodium Biphosphate/ Sodium Phosphate (Fleet Enema) 133 ml DAILY PRN [place] CONSTIPATION; Start 08/12/16 at 18:00 Lorazepam 0.5 mg 0.5 mg Q6H PRN IV ANXIETY; Start 08/12/16 at 18:00 Piperacillin Sod/ Tazobactam Sod (Zosyn 3.375gm/ 100 ml (Pmx)) 100 ml @ 200 mls /hr Q6 IVPB Last administered on 08/14/16 05:17; Admin Dose 200 MLS/HR; Start 08/13/16 at 00:00 Hydralazine HCl (Apresoline) 10 mg Q6H PRN IV ELEVATED BLOOD PRESSURE; Start at 18:00 Nitroglycerin (Nitroglycerin (Sl Tab) 0.4 Mg) 1 tab Q5M PRN SL ANGINA; Start at 18:00 Ranitidine HCl (Zantac) 150 mg BID PO Last administered on 08/13/16 09:11; Admin Dose 150 MG; Start 08/12/16 at 21:00 Trimethobenzamide HCl 200 mg 200 mg Q6H PRN IM NAUSEA AND/OR VOMITING; Start at 12:00 Ondansetron HCl/ Sodium Chloride (Zofran Inj/NS) 54 ml @ 216 mls/hr Q6H PRN IV NAUSEA AND/OR VOMITING Last administered on 08/14/16 02:12; Admin Dose 216 MLS/HR; Start 08/13/16 at 12:00 Hydromorphone HCl 1 mg 1 mg Q4H PRN IV PAIN Last administered on 08/14/16 08: 11; Admin Dose 1 MG; Start 08/13/16 at 12:00 Dextrose/Sodium Chloride (D5-1/2ns) 1,000 ml @ 75 mls/hr [id number] IV Last administered on 08/14/16 05:17; Admin Dose 75 MLS/HR; Start 08/13/16 at 12:00 Heparin Sodium (Porcine) (Heparin (5000 Units/0.5 ml)) 5,000 unit Q12 SC ; Start 08/14/16 at 21:00 JULIANO FAY MD Aug 14, 2016 12:16
--- NOTE | 2016-08-14 12:23 | PDOCDIS ---
Discharge Instructions CONDITION Patient Condition: Stable HOME CARE INSTRUCTIONS: Diet Instructions: Regular ACTIVITY: Activity Restrictions: Slowly Increase Activity FOLLOW UP/APPOINTMENTS Follow-up Plan Please take your medications as prescribed, and see your doctors in the clinics in 3-5 days for your results. If you experience any more pain or nausea smpts, please go to ER or call 911. JONNY HOOD Aug 14, 2016 12:23
[2016-08-14] MEDS ORDERED: FAMO40TA52 PO (12:26)
[2016-08-14] MEDS ORDERED: ACET325T33 PO (12:26)
[2016-08-14] MEDS ORDERED: ALBU18HF INHALATION (12:26)
[2016-08-14] MEDS ORDERED: ONDA8TAB9 PO (12:26)
[2016-08-14] MEDS ORDERED: HYDR-3498 PO (12:27)
--- NOTE | 2016-08-14 13:01 | DS ---
DATE OF ADMISSION: 08/12/2016 DATE OF DISCHARGE: 08/14/2016 HOSPITAL COURSE: This is a 45-year-old female originally admitted on 08/12/2016, being discharged h ome on 08/14/2016. Patient came in with abdominal pain. She has a prior history of what looks lik e possible gastritis and asthma. She was admitted after imaging studies showed signs of new liver m asses extending into the gallbladder wall, concerning for metastasis. She was admitted and seen by hepatobiliary surgery team, hematology/oncology team and GI team. She underwent an ERCP, sphinctero sandy, brushings of the distal bile duct, a biopsy of the distal bile duct and a 10 x 6 self-expandin g metal stent was placed. Patient tolerated procedure well. Her nausea and abdominal pain symptoms were improved with pain control and antiemetic medications. Her leukocytosis was trending down by the time of discharge. She had no dysuria and there were some elevated blood tests. Specifically, tumor markers that were found, including CEA of 106 and CA 19-9 of 3420 and CA-125 of 36.1. There w as a strong suspicion of possible hepatobiliary cancer, although again we are still waiting for the biopsy results. The patient has been cleared for discharge since she is medically improved as far a s abdominal pain, nausea, vomiting symptoms, but she will need close followup and get the final resu lts of the biopsy results with both GI team and with hematology/oncology team in the clinic in the ext 3 to 5 days. She has been instructed to follow up with them in the next 3 to 5 days. In the [facility], she will be discharged home today with: 1. Tylenol 650 q.6h. p.r.n. pain. 2. Famotidine 40 mg at bedtime. 3. [place] 5/325 q.6h. p.r.n. 4. Zofran 8 mg q.6h. p.r.n. 5. Ventolin HFA 2 puffs inhaled q.4h. She will need to followup, again, as mentioned above, with outside sales consultant teams. FINAL DIAGNOSES: 1. 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 Awaiting biopsy results after that wa s taken, status post endoscopic retrograde cholangiopancreatography with metal stent placed, as well as sphincterectomy. 2. History of asthma. 3. Questionable history of gastritis. Time spent discharging patient 45 minutes. Dictated By: JONNY DOWELL Conf#: [id number] DID#: [id number]
--- NOTE | 2016-08-14 14:01 | CONS ---
Date/Time of Note Date/Time of Note DATE: 08/14/16 TIME: 14:00 Consultation Date/Type/Reason Admit Date/Time Aug 12, 2016 at 17:07 Initial Consult Date 08/14/16 Type of Consultation: Anesthesiology Reason for Consultation Follow up Referring Provider: JONNY HOOD 24 HR Interval Summary Free Text/Dictation Pt seen and examined at bedside is POD#1 s/p ERCP with stent placement. Pt received GETA for the procedure without any complication. No N/V/D/C. She is awaiting biopsy results of ERCP brushings. Will follow up. Constitutional: improved, no complaints Exam/Review of Systems Vital Signs Vitals Vital Signs Date Time Temp Pulse Resp B/P Pulse Ox O2 Delivery O2 Flow Rate FiO2 08/14/16 11:23 98.2 75 18 136/76 100 08/14/16 07:30 Room Air 08/13/16 21:00 10.0 08/13/16 19:01 21 Intake and Output 08/13/16 08/13/16 08/14/16 15:00 23:00 07:00 Intake Total 1254 ml Balance 1254 ml Results Result Diagram: 08/14/16 0740 08/14/16 0740 Results 24 hrs Laboratory Tests Test 08/14/16 07:40 08/14/16 08:18 White Blood Count 11.2 H Red Blood Count 4.55 Hemoglobin 11.3 L Hematocrit 34.8 L Mean Corpuscular Volume 76.5 L Mean Corpuscular Hemoglobin 24.8 L Mean Corpuscular Hemoglobin Concent 32.5 Red Cell Distribution Width 14.2 Platelet Count 245 Mean Platelet Volume 9.8 Neutrophils % 82.6 H Lymphocytes % 8.8 L Monocytes % 7.6 Eosinophils % 0.3 Basophils % 0.3 Nucleated Red Blood Cells % 0.0 Neutrophils # 9.3 H Lymphocytes # 1.0 Monocytes # 0.9 Eosinophils # 0.0 Basophils # 0.0 Nucleated Red Blood Cells # 0.0 Sodium Level 134 L Potassium Level 4.0 Chloride Level 109 Carbon Dioxide Level 19 L Anion Gap 10 # Blood Urea Nitrogen 3 L Creatinine 0.58 Glucose Level 142 # Calcium Level 7.4 L Total Bilirubin 0.5 Direct Bilirubin 0.00 Indirect Bilirubin 0.5 Aspartate Amino Transf (AST/SGOT) 62 H Alanine Aminotransferase (ALT/SGPT) 65 Alkaline Phosphatase 62 Total Protein 6.0 #L Albumin 3.5 # Bedside Glucose 148 Medications Medications Current Medications Acetaminophen (Tylenol Tab) 650 mg Q6H PRN PO PAIN LEVEL 1-3 OR FEVER Last administered on 08/13/16 16:00; Admin Dose 650 MG; Start 08/12/16 at 18:00 Acetaminophen/ Hydrocodone Bitart ([place] (5/325)) 1 tab Q6H PRN PO MODERATE PAIN LEVEL 4-6; Start 08/12/16 at 18:00 Morphine Sulfate (morphine) 2 mg Q4H PRN IV SEVERE PAIN LEVEL 7-10; Start 08/12 at 18:00 Docusate Sodium (Colace) 100 mg Q12H PRN PO CONSTIPATION; Start 08/12/16 at 18: 00 Magnesium Hydroxide (Milk Of Mag) 30 ml DAILY PRN PO CONSTIPATION; Start at 18:00 Sodium Biphosphate/ Sodium Phosphate (Fleet Enema) 133 ml DAILY PRN [place] CONSTIPATION; Start 08/12/16 at 18:00 Lorazepam 0.5 mg 0.5 mg Q6H PRN IV ANXIETY; Start 08/12/16 at 18:00 Piperacillin Sod/ Tazobactam Sod (Zosyn 3.375gm/ 100 ml (Pmx)) 100 ml @ 200 mls /hr Q6 IVPB Last administered on 08/14/16 12:41; Admin Dose 200 MLS/HR; Start 08/13/16 at 00:00 Hydralazine HCl (Apresoline) 10 mg Q6H PRN IV ELEVATED BLOOD PRESSURE; Start at 18:00 Nitroglycerin (Nitroglycerin (Sl Tab) 0.4 Mg) 1 tab Q5M PRN SL ANGINA; Start at 18:00 Ranitidine HCl (Zantac) 150 mg BID PO Last administered on 08/14/16 12:41; Admin Dose 150 MG; Start 08/12/16 at 21:00 Trimethobenzamide HCl 200 mg 200 mg Q6H PRN IM NAUSEA AND/OR VOMITING; Start at 12:00 Ondansetron HCl/ Sodium Chloride (Zofran Inj/NS) 54 ml @ 216 mls/hr Q6H PRN IV NAUSEA AND/OR VOMITING Last administered on 08/14/16 02:12; Admin Dose 216 MLS/HR; Start 08/13/16 at 12:00 Hydromorphone HCl 1 mg 1 mg Q4H PRN IV PAIN Last administered on 08/14/16 08: 11; Admin Dose 1 MG; Start 08/13/16 at 12:00 Dextrose/Sodium Chloride (D5-1/2ns) 1,000 ml @ 75 mls/hr [id number] IV Last administered on 08/14/16 05:17; Admin Dose 75 MLS/HR; Start 08/13/16 at 12:00 Heparin Sodium (Porcine) (Heparin (5000 Units/0.5 ml)) 5,000 unit Q12 SC ; Start 08/14/16 at 21:00 HANSA EAGLE Aug 14, 2016 14:01
[2016-08-14] MEDS: ACETAMINOPHEN 325 MG TAB PO PRN (14:32)
[2016-08-14] MEDS ORDERED: HEPARIN 5,000 UNIT/0.5 ML VIAL SC SCH (21:00)
== END 2016-08-14 17:10 | disposition home or self-care (01) | DRG 421 ==
LOC: FTE 12:05 → MS2 17:07
PROVIDERS: ADMIT Hospitalist; ATTEND Hospitalist
PROC: 0FB98ZX Excision of Common Bile Duct, Via Natural or Artificial Opening Endoscopic, Diagnostic (ICD-10-PCS; 2016-08-13)
PROC: 0F798DZ Dilation of Common Bile Duct with Intraluminal Device, Via Natural or Artificial Opening Endoscopic (ICD-10-PCS; 2016-08-13)
PROC: 0FB04ZX Excision of Liver, Percutaneous Endoscopic Approach, Diagnostic (ICD-10-PCS; principal; 2016-08-14)
DX: C78.7 Secondary malignant neoplasm of liver and intrahepatic bile duct (principal); K80.51 Calculus of bile duct without cholangitis or cholecystitis with obstruction; C23 Malignant neoplasm of gallbladder; D50.8 Other iron deficiency anemias; I70.90 Unspecified atherosclerosis; J45.909 Unspecified asthma, uncomplicated; K29.70 Gastritis, unspecified, without bleeding; Z82.49 Family history of ischemic heart disease and other diseases of the circulatory system
CPT/HCPCS: 36415; 74177; 74181; 74330; 77012; 80048; 80053; 80061; 80076; 81001; 82105; 82378; 82607; 82728; 82746; 82962; 83010; 83036; 83540; 83615; 83690; 83735; 84100; 84439; 84443; 85025; 85045; 85610; 85730; 86301; 86304; 87086; 88104; 88305; 88307; 88313; 94664; 96374; 96375; 96376; C2617; J1170; J1200; J1644; J2250; J2270; J2405; J2543; J2710; J2765; J3010; J7030; J7042; J7999; Q9967

== ENCOUNTER 2016-09-26 19:32 | Emergency (ER) | payer OTHER ==
[~2016-09-26] VITALS: Ht 152.4 cm; Wt 48.0 kg
[~2016-09-26 19:32] MED LIST changes: +ACET325T33 PO; +ALBU18HF INHALATION; +FAMO40TA52 PO; +HYDR-3498 PO; -HYDR-906 PO; -IBUP-1542 PO; -ONDA4TAB8 PO; +ONDA8TAB9 PO
[2016-09-26 20:01] VITALS: Ht 152.4 cm; Wt 48.0 kg
[2016-09-26] MEDS ORDERED: PIPER-TAZO 3.375 GM IV (PMX) 100 ML IVPB STA (20:24)
[2016-09-26] MEDS ORDERED: SODIUM CHLORIDE 0.9% 1L BAG IV* STA (20:24)
[2016-09-26] MEDS ORDERED: VANCOMYCIN 1 GM (PMX) 250 ML IVPB ONE (20:30)
[2016-09-26 20:59] LABS: BASOPHILS % 0.4 % (0.0-2.0); EOSINOPHILS # 1.6 10^3/ul (0.0-0.5); EOSINOPHILS % 15.9 % (0.0-7.0); HEMATOCRIT 34.2 % (37.0-47.0); HEMOGLOBIN 10.9 g/dl (12.0-16.0); LYMPHOCYTES # 1.1 10^3/ul (0.8-2.9); LYMPHOCYTES % 11.5 % (15.0-51.0); MEAN CORPUSCULAR HEMOGLOBIN 24.5 pg (29.0-33.0); MEAN CORPUSCULAR HGB CONC 31.9 g/dl (32.0-37.0); MEAN CORPUSCULAR VOLUME 76.9 fl (82.0-101.0); MONOCYTE # 0.2 10^3/ul (0.3-0.9); MONOCYTES % 1.7 % (0.0-11.0); NEUTROPHIL # 6.8 10^3/ul (1.6-7.5); NEUTROPHILS % 70.2 % (39.0-77.0); PLATELET COUNT 278 10^3/UL (140-415); RED BLOOD COUNT 4.45 10^6/ul (4.20-5.40); RED CELL DISTRIBUTION WIDTH 13.7 % (11.5-14.5); WHITE BLOOD COUNT 9.7 10^3/ul (4.8-10.8)
[2016-09-26 21:16] LABS: INR 0.99; PROTIME 13.1 Sec (12.2-14.2)
[2016-09-26 21:17] LABS: PARTIAL THROMBOPLASTIN TIME 28.6 Sec (25.0-35.0)
[2016-09-26 21:23] LABS: ALANINE AMINOTRANSFERASE 71 IU/L (13-69); ALBUMIN 4.2 g/dl (3.3-4.9); ALKALINE PHOSPHATASE 113 IU/L (42-121); ANION GAP 19 (8-16); ASPARTATE AMINO TRANSFERASE 85 IU/L (15-46); BILIRUBIN,INDIRECT 0.7 mg/dl (0-1.1); BILIRUBIN,TOTAL 0.7 mg/dl (0.2-1.3); BLOOD UREA NITROGEN 11 mg/dl (7-20); CALCIUM 9.3 mg/dl (8.4-10.2); CARBON DIOXIDE 28 mmol/L (21-31); CHLORIDE 97 mmol/L (97-110); CREATININE 0.63 mg/dl (0.44-1.00); GLUCOSE 95 mg/dl (70-220); POTASSIUM 3.9 mmol/L (3.5-5.1); SODIUM 140 mmol/L (135-144); TOTAL PROTEIN 8.4 g/dl (6.1-8.1)
[2016-09-26 21:35] LABS: TROPONIN-I < 0.012 ng/ml (0.00-0.12)
[2016-09-26 22:00] LABS: ADD UMIC NO; UR ASCORBIC ACID NEGATIVE (NEGATIVE); UR BILIRUBIN (Dip) NEGATIVE (NEGATIVE); UR BLOOD (Dip) NEGATIVE (NEGATIVE); UR CLARITY CLEAR (CLEAR); UR COLOR STRAW (YELLOW); UR GLUCOSE (Dip) NEGATIVE (NEGATIVE); UR KETONES (Dip) NEGATIVE (NEGATIVE); UR LEUKOCYTE ESTERASE (Dip) NEGATIVE Leu/ul (NEGATIVE); UR NITRITE (Dip) NEGATIVE (NEGATIVE); UR SPECIFIC GRAVITY (Dip) 1.004 (1.003-1.030); UR TOTAL PROTEIN (Dip) NEGATIVE (NEGATIVE); UR UROBILINOGEN (Dip) NEGATIVE (NEGATIVE)
--- NOTE | 2016-09-26 22:30 | ERD ---
ER Documentation Chief Complaint Date/Time DATE: 09/26/16 TIME: 22:30 Chief Complaint Fever and chills today, had chemotherapy a week ago. Tylenol 1gm taken 1830 HPI Patient is a 45-year-old female with cholangiocarcinoma and asthma who presents with fever and chills. She had a fever of 100.4 and chills. The symptoms started today. She was given Tylenol at 30 p.m. She denies cough or urinary symptoms. She did have her first chemotherapy done 1 week ago. She spoke to her oncologist Dr. Forrest who sent her to the emergency department for further workup. ROS All systems reviewed and are negative except as per history of present illness. Medications Home Meds Active Scripts Ibuprofen* (Motrin*) 600 Mg Tab, 600 MG PO Q8, #30 TAB Prov:JENNIFER VELÁSQUEZ MD 09/26/16 Hydrocodone Bit-Acetaminophen (Hydrocodone Bit-APAP) 5-325MG Tablet, 1 TAB PO Q6H Y for MODERATE PAIN LEVEL 4-6, #40 TAB Prov:JONNY HOOD S. 08/14/16 Ondansetron Hcl* (Zofran*) 8 Mg Tablet, 8 MG PO Q6H Y for NAUSEA AND OR VOMITING , #60 TAB 2 Refills Prov:JONNY HOOD S. 08/14/16 Acetaminophen* (Tylenol*) 325 Mg Tablet, 650 MG PO Q6H Y for PAIN AND OR ELEVATED TEMP, #90 TAB 2 Refills Prov:JONNY HOOD S. 08/14/16 Famotidine* (Famotidine*) 40 Mg Tablet, 40 MG PO HS, #30 TAB 3 Refills Prov:JONNY HOOD S. 08/14/16 Albuterol Sulfate* (Ventolin HFA*) 18 Gm Hfa.aer.ad, 2 PUFF INHALATION Q4H, #1 INHALER 4 Refills Prov:JONNY HOOD S. 08/14/16 Allergies Allergies: Coded Allergies: No Known Allergy (Unverified , 08/11/16) PMhx/Soc History of Surgery: Yes (TUBAL LIGATION) Anesthesia Reaction: No Hx Neurological Disorder: Yes (DIZZY) Hx Respiratory Disorders: Yes (ASTHMA) Hx Cardiac Disorders: No Hx Psychiatric Problems: No Hx Miscellaneous Medical Probl: No Hx Alcohol Use: No Hx Substance Use: No Hx Tobacco Use: No Smoking Status: Never smoker FmHx Family History: diabetes Physical Exam Vitals Vital Signs Date Time Temp Pulse Resp B/P Pulse Ox O2 Delivery O2 Flow Rate FiO2 09/26/16 20:01 98.7 101 22 110/56 97 Physical Exam Const: No acute distress Head: Atraumatic Eyes: Normal Conjunctiva ENT: Normal External Ears, Nose and Mouth. Neck: Full range of motion..~ No meningismus. Resp: Clear to auscultation bilaterally Cardio: Regular rate and rhythm, no murmurs Abd: Soft, non tender, non distended. Normal bowel sounds Skin: No petechiae or rashes Back: No midline or flank tenderness Ext: No cyanosis, or edema Neur: Awake and alert Psych: Normal Mood and Affect Result Diagram: 09/26/16202909/26/162029 Results 24 hrs Laboratory Tests Test 09/26/16 20:30 09/26/16 21:15 White Blood Count 9.710^3/ul Red Blood Count 4.4510^6/ul Hemoglobin 10.9g/dl Hematocrit 34.2% Mean Corpuscular Volume 76.9fl Mean Corpuscular Hemoglobin 24.5pg Mean Corpuscular Hemoglobin Concent 31.9g/dl Red Cell Distribution Width 13.7% Platelet Count 31494^3/UL Mean Platelet Volume 10.0fl Neutrophils % 70.2% Lymphocytes % 11.5% Monocytes % 1.7% Eosinophils % 15.9% Basophils % 0.4% Nucleated Red Blood Cells % 0.0/100WBC Neutrophils # 6.810^3/ul Lymphocytes # 1.110^3/ul Monocytes # 0.210^3/ul Eosinophils # 1.610^3/ul Basophils # 0.010^3/ul Nucleated Red Blood Cells # 0.010^3/ul Prothrombin Time 13.1Sec Prothrombin Time Ratio 1.0 INR International Normalized Ratio 0.99 Activated Partial Thromboplast Time 28.6Sec Sodium Level 140mmol/L Potassium Level 3.9mmol/L Chloride Level 97mmol/L Carbon Dioxide Level 28mmol/L Anion Gap 19 Blood Urea Nitrogen 11mg/dl Creatinine 0.63mg/dl Glucose Level 95mg/dl Lactic Acid Level 1.0mmol/L Calcium Level 9.3mg/dl Total Bilirubin 0.7mg/dl Direct Bilirubin 0.00mg/dl Indirect Bilirubin 0.7mg/dl Aspartate Amino Transf (AST/SGOT) 85IU/L Alanine Aminotransferase (ALT/SGPT) 71IU/L Alkaline Phosphatase 113IU/L Troponin I < 0.012ng/ml Total Protein 8.4g/dl Albumin 4.2g/dl Globulin 4.20g/dl Albumin/Globulin Ratio 1.00 Lipase 179U/L Urine Color STRAW Urine Clarity CLEAR Urine pH 6.0 Urine Specific [place] 1.004 Urine Ketones NEGATIVEmg/dL Urine Nitrite NEGATIVEmg/dL Urine Bilirubin NEGATIVEmg/dL Urine Urobilinogen NEGATIVEmg/dL Urine Leukocyte Esterase NEGATIVELeu/ul Urine Hemoglobin NEGATIVEmg/dL Urine Glucose NEGATIVEmg/dL Urine Total Protein NEGATIVEmg/dl Current Medications Medications (Trade) Dose Ordered Sig/Carmella Route PRN Reason Start Time Stop Time Status Last Admin Dose Admin Sodium Chloride 1490 ml 1,490 ml BOLUS OVER 2 HOURS STAT IV* 09/26/16 20:24 09/26/16 20:26 DC 09/26/16 21:06 Vancomycin HCl 250 ml @ 125 mls/hr ONCE ONCE IVPB 09/26/16 20:30 09/26/16 22:29 DC 09/26/16 21:54 Piperacillin Sod/ Tazobactam Sod (Zosyn 3.375gm/ 100 ml (Pmx)) 100 ml @ 200 mls/hr ONCE STAT IVPB 09/26/16 20:24 09/26/16 20:53 DC 09/26/16 21:05 Procedures/MDM EKG read by me: Rate/Rhythm: Regular rate and rhythm at a rate of 92 Intervals: Normal Impression: No evidence of ischemia or arrhythmia Chest X-ray 1V Interpreted by me: Soft Tissue: No acute abnormalities Bones: No acute abnormalities Mediastinum/Cardiac Silhouette/Lungs: [No acute abnormalities] Patient is a 45-year-old female with cholangiocarcinoma and 1 dose of chemotherapy who presents with fever and chills. She is afebrile in the emergency department but she did get recent Tylenol. The patient has a normal EKG and normal chest x-ray. Urinalysis shows no signs of infection. White blood cell count is normal and she has a normal percentage of neutrophils. I do not think this is neutropenic fever. I doubt pneumonia, cystitis, or sepsis. I believe outpatient management is appropriate but the patient will need close follow-up with her primary doctor and oncologist within 24-48 hours for reevaluation. She can return sooner for any worsening symptoms. The patient understands the plan is okay for discharge at this time. Departure Diagnosis: Primary Impression: Anemia Anemia type: unspecified type Qualified Code: D64.9 - Anemia, unspecified type Additional Impression: Fever with chills Condition: Fair Patient Instructions: Anemia, Febrile Illness, Uncertain Cause (Adult) Additional Instructions: Call your primary care doctor TOMORROW for an appointment during the next 1-2 days.See the doctor sooner or return here if your condition worsens before your appointment time. JENNIFER VELÁSQUEZ MD Sep 26, 2016 22:30
[2016-09-26] MEDS ORDERED: IBUP-1542 PO (22:37)
--- NOTE | 2016-09-26 22:48 | RADRPT ---
PROCEDURE: XR Chest. CLINICAL INDICATION: chest pain TECHNIQUE: Single frontal view of the chest was obtained COMPARISON: None FINDINGS: The heart and mediastinum are within normal limits. The lungs are clear. There is no pleural effusion or pneumothorax. RPTAT: AA IMPRESSION: No acute disease. .Alvaro Rai MD, Date Time Electronically viewed and signed by .Alvaro Rai MD, on 09/26/2016 22:47 .S/
[2016-09-26 22:58] VITALS: BP 114/76; PULSE 73; RESP 18; TEMP 98.4
== END 2016-09-26 23:01 | disposition home or self-care (01) ==
LOC: E/R 19:32
DX: D64.9 Anemia, unspecified (principal); J45.909 Unspecified asthma, uncomplicated; R07.9 Chest pain, unspecified
CPT/HCPCS: 36415; 71010; 80053; 81003; 83605; 83690; 84484; 85025; 85610; 85730; 87040; 87086; 93005; 96374; 96375; J2543; J3370; J7030; Z7502

== ENCOUNTER 2017-03-31 23:14 | Inpatient (IN) | END 2017-04-09 18:40 | disposition home or self-care (01) | DRG 872 ==

== ENCOUNTER 2017-05-28 15:19 | Emergency (ER) | END 2017-05-28 20:50 | disposition home or self-care (01) ==

== ENCOUNTER 2017-08-11 22:25 | Emergency (ER) | END 2017-08-12 03:03 | disposition left against medical advice (07) ==